=== PATIENT | female | born 1935 | race Caucasian/White ===

== ENCOUNTER 2017-11-21 07:24 | Inpatient (IN) | payer MEDICARE, OTHER ==
[2017-11-21] MEDS ORDERED: Acetaminophen TAB* 325 MG PO PRN (12:38)
[2017-11-21] MEDS ORDERED: Senna TAB PO PRN (12:38)
[2017-11-21] MEDS ORDERED: Magnesium Hydroxide LIQ* 30 ML UDC PO PRN (12:38)
[2017-11-21] MEDS: Warfarin TAB(*) 3 MG PO SCH (16:47)
[2017-11-21] MEDS: Docusate CAP* 100 MG PO SCH (19:59)
[2017-11-21] MEDS: Metoprolol Tartrate TAB* 100 MG TAB PO SCH (20:48)
--- NOTE | 2017-11-21 21:59 | HP ---
ADMISSION HISTORY AND PHYSICAL: DATE OF ADMISSION: 11/21/17 REASON FOR ADMISSION: Stroke with right-sided weakness and aphasia. HISTORY OF ILLNESS: Rose Saucedo is a 81-year-old female who has a history significant for hypertension as well as atrial fibrillation. The patient was on Xarelto for this. The patient came to [facility] acutely on 11/06/17. The patient went to bed at around 8 o'clock on November 05 but woke up at about 2 o'clock in the morning and had difficulty speaking. She was brought by her to [facility] about 4 o'clock. Her EKG showed sinus bradycardia. She had a CT angiogram showing a left middle cerebral artery cut off. She was transferred to [facility] for a potential for embolectomy. CAT scan of her head did show a hypodensity in the M2 segment of the left middle cerebral artery consistent with an intravascular thrombus. There was no evidence of any hemorrhagic transformation. The patient as mentioned was transferred and underwent an embolectomy for the proximal M2 thrombus. The patient was put on Coumadin. Her stroke was felt to be embolic because of her history of AFib. There was slow improvement in her neurologic functioning, but the patient was left with a significant aphasia as well as right arm weakness and some right leg weakness. The patient was felt to have physical therapy, occupational therapy and speech therapy needs. She is now being admitted for inpatient rehab, so that she might return to independent living. PAST MEDICAL HISTORY: Significant for the aforementioned hypertension and atrial fibrillation. CURRENT MEDICATIONS: Include: 1. Coumadin. 2. Lipitor. 3. Lisinopril. 4. Magnesium oxide. 5. Lopressor. 6. Potassium. ALLERGIES: To PENICILLIN and SULFA. SOCIAL HISTORY: She lives with her significant other in a [address] house. She has no children. There is a bedroom upstairs. There is a half-bath downstairs. She is a nonsmoker, nondrinker. REVIEW OF SYSTEMS: The patient reports no current shortness of breath or chest pain. PHYSICAL EXAMINATION VITAL SIGNS: The patient's temperature is 98.2, blood pressure is 113/57, pulse is 49, respirations 24. HEENT: Her extraocular movements are intact. I did not detect a facial palsy. LUNGS: Sounded clear to auscultation bilaterally. HEART: Sounds are regular. S1 and S2 are audible. ABDOMEN: Soft and nontender. EXTREMITIES: She had somewhat decreased muscle tone in her right upper extremity. Peripheral pulses were intact. NEUROLOGIC: The patient was awake and alert. She had an expressive and receptive aphasia. Right arm was about 3+/5 in strength. Her right leg was about 3+ to 4/5. FUNCTIONAL EXAM: The patient transfers with minimal amount of assistance. 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 PLAN: Our plan is to integrate her into a comprehensive and therapeutic rehab program with the following goals: 1. Physical Therapy will see the patient, they are going to work on functional transfer training and ambulation training with a walker. 2. Occupational Therapy will see the patient, work on her activities of daily living including toileting and toilet transfers. 3. Speech Therapy will see the patient, work on her aphasia and compensatory strategies. Work on her swallowing dysfunction. 4. Coumadin for atrial fibrillation as well as DVT prophylaxis. 5. For her atrial fibrillation, we will continue her on the Coumadin as well as beta-sofiya. 5. For secondary stroke prevention, we are going to continue the Coumadin as well as Lipitor. 6. SSRIs including Prozac as indicated. 7. Pillowcase Folder will be closely involved to make sure that any services and equipment that the patient requires are in place prior to discharge. 8. Family training as appropriate. 9. Advanced directives: The patient is a full code. Her significant other, Cem, is her proxy. 10. Home with appropriate services. ESTIMATED LENGTH OF STAY: Fourteen to eighteen days. [id number]/[facility] #: [id number] BIGG
[2017-11-22 06:39] LABS: INR 2.27 (0.77-1.02)
[2017-11-22] MEDS: Magnesium Oxide TAB* 400 MG PO SCH (10:06)
[2017-11-22] MEDS: Lisinopril TAB* 10 MG PO SCH (10:06)
[2017-11-22] MEDS: Metoprolol Tartrate TAB* 100 MG TAB PO SCH ×2 (10:07→21:09)
[2017-11-22] MEDS: Potassium Chlor TAB* 20 MEQ TAB.ER PO SCH (10:07)
[2017-11-22] MEDS: Docusate CAP* 100 MG PO SCH ×2 (10:10→21:07)
[2017-11-22] MEDS: Warfarin TAB(*) 3 MG PO SCH (16:55)
[2017-11-22] MEDS: Atorvastatin* 80 MG TAB PO SCH (16:55)
--- NOTE | 2017-11-22 18:07 | PN ---
Progress Note Date of Service: 11/22/17 Note: TEJAS TAVARES was visited. Therapy notes read and reviewed. She has a pretty significant aphasia, with both receptive and expressive elements. Right hemiparesis, arm>leg Current Medications: Active Medications Generic Name Dose Route Start Last Admin Trade Name Freq PRN Reason Stop Dose Admin Acetaminophen 650 mg 11/21/17 12:38 Tylenol Tab* PO Q6H PRN FEVER/PAIN Atorvastatin Calcium 80 mg 11/22/17 17:00 11/22/17 16:55 Lipitor* PO 80 mg 1700 CHAD Administration Docusate Sodium 100 mg 11/21/17 21:00 11/22/17 10:10 Colace Cap* PO Not Given BID CHAD Lisinopril 20 mg 11/22/17 09:00 11/22/17 10:06 Prinivil Tab* PO 20 mg DAILY CHAD Administration Magnesium Hydroxide 30 ml 11/21/17 12:38 Milk Of Magnesia Liq* PO Q6H PRN CONSTIPATION Magnesium Oxide 400 mg 11/22/17 09:00 11/22/17 10:06 Magox 400 Tab* PO 400 mg DAILY CHAD Administration Metoprolol Tartrate 100 mg 11/21/17 21:00 11/22/17 10:07 Lopressor Tab* PO 100 mg BID CHAD Administration Potassium Chloride 20 meq 11/22/17 09:00 11/22/17 10:07 Klor Con Er Tab* PO 20 meq DAILY CHAD Administration Senna 2 tab 11/21/17 12:38 Senokot Tab* PO BEDTIME PRN CONSTIPATION Warfarin Sodium 3 mg 11/21/17 17:00 11/22/17 16:55 Coumadin Tab(*) PO 3 mg DAILY@1700 CHAD Administration Protocol Vital Signs: Vital Signs Temp Pulse Resp BP Pulse Ox 97.6 F 46 18 128/64 99 11/22/17 16:07 11/22/17 16:07 11/22/17 16:07 11/22/17 16:07 11/22/17 16:07 Lab Results: Laboratory Results - last 24 hr 11/22/17 05:46 INR (Anticoag Therapy) 2.27 H Exam: LUNGS: Clear HEART: reg rhythm ABDOMEN: Soft, +BS EXTREMITIES: Slightly increased tone, RUE NEUROLOGIC: alert, aphasic. Right handgrip 2+-3/5. Right leg 4/5 Assessment/Plan: 1. Left MCA CVA with right hemiparesis and aphasia: Underwent embolectomy at [facility]. PT/OT/LAB ASST. May try Prozac 2. Atrial fibrillation: Coumadin. Lopressor 3. Secondary Stroke Prevention: Lipitor/Coumadin 4. DVT Prophylaxis: Coumadin 5. HTN: Lopressor/Lisinopril. 11/22/17 18:11
[2017-11-23 06:30] LABS: ABS Basophils 0 10^3/ul (0-0.2); ABS Eosinophils 0.1 10^3/ul (0-0.6); ABS Lymphocytes 1.1 10^3/ul (1.0-4.8); ABS Monocytes 0.6 10^3/ul (0-0.8); ABS Neutrophils 4.7 10^3/ul (1.5-7.7); ABS Nucleated RBC 0 10^3/ul; Eosinophil % 1.9 % (0-6); Hematocrit 37 % (35-47); Hemoglobin 12.7 g/dl (12.0-16.0); Mean Corpuscular HGB Conc 34 g/dl (31-36); Mean Corpuscular Hemoglobin 33 pg (27-31); Mean Corpuscular Volume 95 fL (80-97); Mean Platelet Volume 8.3 um3 (7.4-10.4); Nucleated Red Blood Cells % 0; Platelet Count 246 10^3/ul (150-450); Red Blood Count 3.88 10^6/ul (4.0-5.4); Red Cell Distribution Width 15 % (10.5-15); White Blood Count 6.7 10^3/ul (3.5-10.8)
[2017-11-23 06:37] LABS: INR 2.11 (0.77-1.02)
[2017-11-23 06:46] LABS: EGFR Non-African American 76.9 (>60)
[2017-11-23] MEDS: Magnesium Oxide TAB* 400 MG PO SCH (09:40)
[2017-11-23] MEDS: Lisinopril TAB* 10 MG PO SCH (09:40)
[2017-11-23] MEDS: Docusate CAP* 100 MG PO SCH ×2 (09:40→20:10)
[2017-11-23] MEDS: Potassium Chlor TAB* 20 MEQ TAB.ER PO SCH (09:40)
[2017-11-23] MEDS: Metoprolol Tartrate TAB* 100 MG TAB PO SCH ×2 (09:40→20:10)
--- NOTE | 2017-11-23 12:10 | PN ---
Progress Note Date of Service: 11/23/17 Note: TEJAS TAVARES was visited. Nursing and therapy notes read and reviewed. No chest pain, shortness of breath or abdominal pain. Current Medications: Active Medications Generic Name Dose Route Start Last Admin Trade Name Freq PRN Reason Stop Dose Admin Acetaminophen 650 mg 11/21/17 12:38 Tylenol Tab* PO Q6H PRN FEVER/PAIN Atorvastatin Calcium 80 mg 11/22/17 17:00 11/22/17 16:55 Lipitor* PO 80 mg 1700 CHAD Administration Docusate Sodium 100 mg 11/21/17 21:00 11/23/17 09:40 Colace Cap* PO 100 mg BID CHAD Administration Lisinopril 20 mg 11/22/17 09:00 11/23/17 09:40 Prinivil Tab* PO 20 mg DAILY CHAD Administration Magnesium Hydroxide 30 ml 11/21/17 12:38 Milk Of Magncruzito Liq* PO Q6H PRN CONSTIPATION Magnesium Oxide 400 mg 11/22/17 09:00 11/23/17 09:40 Magox 400 Tab* PO 400 mg DAILY CHAD Administration Metoprolol Tartrate 100 mg 11/21/17 21:00 11/23/17 09:40 Lopressor Tab* PO 100 mg BID CHAD Administration Potassium Chloride 20 meq 11/22/17 09:00 11/23/17 09:40 Klor Con Er Tab* PO 20 meq DAILY CHAD Administration Senna 2 tab 11/21/17 12:38 Senokot Tab* PO BEDTIME PRN CONSTIPATION Warfarin Sodium 3 mg 11/21/17 17:00 11/22/17 16:55 Coumadin Tab(*) PO 3 mg DAILY@1700 CHAD Administration Protocol Vital Signs: Vital Signs Temp Pulse Resp BP Pulse Ox 98.1 F 52 18 147/77 92 11/23/17 05:32 11/23/17 05:32 11/23/17 05:32 11/23/17 05:32 11/23/17 05:32 Lab Results: Laboratory Results - last 24 hr 11/23/17 11/23/17 11/23/17 05:48 05:48 05:48 WBC 6.7 RBC 3.88 L Hgb 12.7 Hct 37 MCV 95 MCH 33 H MCHC 34 RDW 15 Plt Count 246 MPV 8.3 Neut % (Auto) 71.2 Lymph % (Auto) 17.0 L [place] % (Auto) 9.4 H Eos % (Auto) 1.9 Baso % (Auto) 0.5 Absolute Neuts (auto) 4.7 Absolute Lymphs (auto) 1.1 Absolute Monos (auto) 0.6 Absolute Eos (auto) 0.1 Absolute Basos (auto) 0 Absolute Nucleated RBC 0 Nucleated RBC % 0 INR (Anticoag Therapy) 2.11 H Sodium 140 Potassium 3.5 Chloride 108 Carbon Dioxide 26 Anion Gap 6 BUN 29 H Creatinine 0.73 Est GFR ( Amer) 98.9 Est GFR (Non-Af Amer) 76.9 BUN/Creatinine Ratio 39.7 H Glucose 83 Calcium 9.2 Total Bilirubin 0.60 AST 20 ALT 12 Alkaline Phosphatase 105 H Total Protein 6.0 L Albumin 3.5 Globulin 2.5 Albumin/Globulin Ratio 1.4 Exam: GEN: No acute distress. Alert and appropriate. LUNGS: Clear to auscultation bilaterally HEART: regular rate and rhythm ABDOMEN: Soft, +BS, non-tender and non-distended. EXTREMITIES: Slightly increased tone, RUE NEUROLOGIC: aphasia. Right handgrip 3/5. Right leg 4+/5. Follows 1 step commands well. Some perseveration. Unclear sensory exam but does state the left and right sides feel "different" as opposed to "the same." Assessment/Plan: 81yo woman s/p left MCA CVA and embolectomy with right hemiparesis and aphasia. 1. Left MCA CVA with right hemiparesis and aphasia: Underwent embolectomy at [facility]. PT/OT/CADDY. Mechanical soft diet. Check with speech on documenation of swallow eval. May try Prozac 2. Atrial fibrillation: Coumadin. Lopressor 3. Secondary Stroke Prevention: Lipitor/Coumadin 4. DVT Prophylaxis: Coumadin 5. HTN: Lopressor/Lisinopril. 6. Advanced directives: full code 7. Dispo: discuss at IPOC meeting today. 11/23/17 12:12
--- NOTE | 2017-11-23 12:52 | PMRUTEAM ---
PMRU: Team Meeting Current Status: Nursing: Current Status Skin Deviations [Bilateral Other Foot] Skin Deviation Description [ dry feet Bilateral Foot] Physical Therapy: Current Status Bed Mobility Assistance mod assist Transfer Moblility Assistance Contact Guard Assist,Min Assist Transfer/Bed Mobility hand hold Recommended Devices Ambulation Assistance Contact guard to min A Ambulation Assistive Devices hand hold 60ft Stairs Assistance Not Tested Curb Not Tested Occupational Therapy: Current Status Upper Body Dressing Max Assist Lower Body Dressing Max Assist Bathing Max Asst Toileting Total Assist Toilet Transfer Min Assist Eating Supervision Rec Therapy: Current Status Summary of Assessment and Patient was open to meeting to discuss her leisure Clinical Impression lifestyle prior to admission. Patient responded mostly to closed questions with "yes" and seemed to have difficulty finding the words to express her thoughts. Patient would apologize and then stated that she was feeling "very tired." Manager Product Management kept our conversation brief to allow patient to adjust to the unit and to rest. Patient agreed she is open to continued leisure visits. Will continue to follow up. Treatment Goals Patient will engage in recreation and leisure activities while on the unit. Treatment Plan Provide and encourage involvement in RT services. Will follow up regularly for 1:1 leisure visits. Social Work: Current Status Discharge Plan return home with home care svs and family support Potential for Family Training pt's spouse is involved and supportive Anticipated Discharge Home Destination Discharge With Home care svs and family support Speech: Current Status Severe receptive and expressive aphasia. Apraxia. Assessment Patient is progressing slowly as expected, with improvement in use of gaze, gesture, repetition and spontaneous speech to indicate choices Speech Current Status Goal 1 2 Speech Goal 2 Current Status 3 Speech Goal 3 Current Status 2 Goals: Physical Therapy: Initial Goals Bed Mobility Assistance Independent Transfer Mobility Assistance Independent Transfer/Bed Mobility Rolling Walker Recommended Devices Ambulation Independent Ambulation Recommended Devices Rolling Walker Ambulation Distance 150 Stairs Assistance Independent Stair Recommended Devices Two Rails Number of Stairs 15 Occupational Therapy: Initial Goals Goals to be Completed in (Days 4 weeks ) Upper Body Bathing Routine Supervision/Set Up Lower Body Bathing Routine Supervision/Set Up Upper Body Dressing Routine Supervision/Set Up Lower Body Dressing Routine Supervision/Set Up Toilet Hygeine and Clothing Supervision/Set Up Management Routine Toilet Transfer Routine Supervision/Set Up Step-In Shower Transfer Supervision/Set Up Routine Tub Transfer Routine Supervision/Set Up Functional Transfers for ADL Modified Independent with Grooming Routine Independent Feeding Routine Independent Light Housekeeping Tasks Minimal Contact Assist,Moderate Assist Speech: Goals Speech Goal 1 Comprehension Speech Evaluation Status Goal 2 1 Speech Current Status Goal 1 2 Goal 1 Comments Long-Term Goals: 1) Patient will follow 1-step verbal directions, with greater than 80% accuracy, I'ly. 2) Patient will identify spatial concepts, body parts, familiar objects and pictures, with greater than 80% accuracy, I'ly. 3) Patient will read numbers and functional words with greater than 80% accuracy, I'ly Short-Term Goals: 1) Patient will follow simple 1-step verbal directions, with 50% accuracy, given maximal verbal cueing, without visual cues. Status: Progressing slowly as expected. ACADEMIC ADVISOR presented pages with labels and pictures, and prompted patient to point to and name pictures. Patient required direct models and [id number] cueing to imitate moving her hand to named pictures. 2) Patient will identify spatial concepts, body parts, familiar objects and pictures, with 50% accuracy, given maximum verbal cueing, without visual cues. Status: Progressing slowly as expected. Patient identified choices of two to complete her menu choices, by partial repetition, or answering "one" or "two." 3) Patient will read numerals and letters with 70% accuracy, given maximal cueing. Speech Goal 2 Expression Speech Goal 2 Evaluation 3 Status Speech Goal 2 Current Status 3 Speech Goal 2 Comments Long-Term Goals: 1) Patient will verbally answer functional questions and express medical and social narratives with greater than 80% accuracy, I'ly. 2) Patient will name spatial concepts, body parts, familiar objects and pictures, with 80% accuracy, I'ly. Status: Progressing slowly as expected. Patient expressed her menu choices, given verbal choices of two, by partial repetition, or answering "one" or "two." 3) Patient will write numbers and functional words with greater than 80% accuracy, I'ly Short-Term Goals: 1) Patient will name spatial concepts, body parts, familiar objects and pictures, with 50% accuracy, given maximal cueing. 2) Patient will use conversational repair strategies to find words by asking for help, hinting, and repeating target words in meaningful sentences, with 50% accuracy, given maximal cueing . Status: Progressing slowly as expected. Patient named 50% of pictureds given initial letter cues. 3) Patient will write numerals, letters and her name with 60% accuracy, given maximal cueing. Speech Goal 3 Problem Solving Speech Goal 3 Evaluation 2 Status Speech Goal 3 Current Status 2 Speech Goal 3 Comments Long-Term Goal: Patient will solve simple functional problems (sequencing, counting, safety) with 80% accuracy given minimal cueing. Short-Term Goal: Patient will solve simple functional problems with 50% accuracy given maximum cueing. Swallow screen to be completed. Already on mechanical soft diet. Social Work: Goals Discharge Plan return home with home care svs and family support Potential for Family Training pt's spouse is involved and supportive Anticipated Discharge Home Destination Discharge With Home care svs and family support Care Plan: Care Plan ADL's - Improve/Maintain Start: 11/22/17 16:31 Freq: DAILY Status: Active Target: Protocol: Activity Type Activity Date Activity User E-Sign Co-Sign Detail Recorded Client Recorded Date Recorded By Document 11/22/17 16:31 [id number] 11/22/17 16:32 [id number] 11/22/17 16:31 PMRU Outcome: ADL's/ADL Transfers Orders/Interventions Occupational Therapy Evaluation & Treatment Communication Tool in Patient Room Device Yes Address Deficits Secondary To: CVA s/p embolectomy Patient to receive OT 5x/wk for 60-120 Therex min/day Self Care Management Group Therapy Neuromuscular ReEducation UE/LE ADL's with Assist Yes: supervision ADL Transfers with Assist Yes: supervision Toileting: Transfers,Clothing Management Yes: ,Hygeine w/Assist supervision Light Kitchen/Laundry w/Assist Yes: min-modA Progression Toward Outcome/Goals Progressing Outcome/Goals Met Pt participated well in OT evaluation, difficult to fully assess 2* multiple areas of deficit including motor planning, weakness, visual field cut vs. neglect vs. inattention to right hemibody, difficulty following commands 2* aphasia and possible cognitive deficits. Pt will benefit from skilled OT intervention to maximize independence and safety. Communication-Improve/Maintain Start: 11/21/17 15:20 Freq: DAILY Status: Active Target: Protocol: Activity Type Activity Date Activity User E-Sign Co-Sign Detail Recorded Client Recorded Date Recorded By Document 11/23/17 01:20 [id number] 11/23/17 01:24 [id number] 11/23/17 01:20 PMRU Outcome: Communication/Cognitive Status Outcome/Goals Use Comm Tools/ Devices Makes Needs Known Effectively Other Outcomes/Goals COMPREHENSION Long-Term Goals : 1) Patient will follow 1-step verbal directions, with greater than 80% accuracy, I'ly. 2) Patient will identify spatial concepts, body parts, familiar objects and pictures, with greater than 80 % accuracy, I' ly. 3) Patient will read numbers and functional words with greater than 80 % accuracy, I' ly Short-Term Goals: 1) Patient will follow simple 1-step verbal directions, with 50% accuracy, given maximal verbal cueing, without visual cues. 2) Patient will identify spatial concepts, body parts, familiar objects and pictures, with 50% accuracy, given maximum verbal cueing, without visual cues. 3) Patient will read numerals and letters with 70% accuracy, given maximal cueing . EXPRESSION Long-Term Goals : 1) Patient will verbally answer functional questions and express medical and social narratives with greater than 80% accuracy, I 'ly. 2) Patient will name spatial concepts, body parts, familiar objects and pictures, with 80% accuracy, I 'ly. 3) Patient will write numbers and functional words with greater than 80 % accuracy, I' ly Short-Term Goals: 1) Patient will name spatial concepts, body parts, familiar objects and pictures, with 50% accuracy, given maximal cueing. 2) Patient will use conversational repair strategies to find words by asking for help , hinting, and repeating target words in meaningful sentences, with 50% accuracy, given maximal cueing. 3) Patient will write numerals , letters and her name with 60% accuracy, given maximal cueing. PROBLEM SOLVING Long-Term Goal: Patient will solve simple functional problems ( sequencing, counting, safety) with 80 % accuracy given minimal cueing. Short-Term Goal : Patient will solve simple functional problems with 50% accuracy given maximum cueing. Progression Toward Outcomes/Goals Goals Adjusted Coping/Psych-Improve/Maintain Start: 11/21/17 15:20 Freq: DAILY Status: Active Target: Protocol: Activity Type Activity Date Activity User E-Sign Co-Sign Detail Recorded Client Recorded Date Recorded By Document 11/23/17 10:08 [id number] 11/23/17 10:10 [id number] 11/23/17 10:08 PMRU Outcome: Coping/Psychosocial Coping Outcome/Goals Verbalization of Acceptance of Rehab Admit Verbalization of Sense of Control Over Health Status Psychosocial Outcome/Goals Maintain/ Improve Emotional Health Cooperate/ Participate in Plan Progression Toward Outcome/Goals - Progressing Coping Progression Toward Outcome/Goals - Progressing Psychosocial DVT Prophylaxis- Improve/Maintain Start: 11/21/17 15:20 Freq: DAILY Status: Active Target: Protocol: Activity Type Activity Date Activity User E-Sign Co-Sign Detail Recorded Client Recorded Date Recorded By Document 11/23/17 10:08 [id number] 11/23/17 10:10 [id number] 11/23/17 10:08 PMRU Outcome: DVT Prophylaxis Outcome/Goals Remains Free of DVT Complies with DVT Prophylaxis /Treatment TEDS Stockings on Every AM, Off at HS Progression Toward Outcome/Goals Progressing Discharge Planning - Improve/Maintain Start: 11/21/17 15:20 Freq: DAILY Status: Active Target: Protocol: Activity Type Activity Date Activity User E-Sign Co-Sign Detail Recorded Client Recorded Date Recorded By Document 11/23/17 01:20 [id number] 11/23/17 01:24 [id number] 11/23/17 01:20 PMRU Outcome: Discharge Planning Update Patient Family No Outcome/Goals Demonstrates Understanding of Discharge Plan Progression Toward Outcome/Goals Progressing Education-Improve/Maintain Start: 11/21/17 15:20 Freq: DAILY Status: Active Target: Protocol: Activity Type Activity Date Activity User E-Sign Co-Sign Detail Recorded Client Recorded Date Recorded By Document 11/23/17 10:08 [id number] 11/23/17 10:10 [id number] 11/23/17 10:08 PMRU Outcome: Education Outcome/Goals Demonstrate/ Verbalize Understanding of Written Discharge Instructions Demonstrates Skills Progression Toward Outcome/Goals Progressing /GI-Improve/Maintain Start: 11/21/17 15:20 Freq: DAILY Status: Active Target: Protocol: Activity Type Activity Date Activity User E-Sign Co-Sign Detail Recorded Client Recorded Date Recorded By Document 11/23/17 10:08 [id number] 11/23/17 10:10 [id number] 11/23/17 10:08 PMRU Outcome: Genitourinary/ Gastrointestinal Genitourinary- Outcome/Goals Maintain/ Achieve Urinary Continence Gastrointestinal-Outcome/Goals Maintain/ Achieve Bowel Regularity in Accordance with Pt's Baseline Prevent Constipation Laxatives as Ordered Other Outcome/Goals colace given this am Progression Toward Outcome/Goals - Progressing Progression Toward Outcome/Goals - GI Progressing Medication Administration Start: 11/21/17 15:20 Freq: DAILY Status: Active Target: Protocol: Activity Type Activity Date Activity User E-Sign Co-Sign Detail Recorded Client Recorded Date Recorded By Document 11/23/17 10:08 [id number] 11/23/17 10:10 [id number] 11/23/17 10:08 PMRU Outcome: Medication Administration Assess Patient Knowledge/Teach Med No Education for all Meds Outcome/Goals Patient Independent with Medication Administration at Home Progression Towards Outcome/Goals Progressing Outcome/Goals Met Comment needs reinforcement of medications Is Patient Going Home on Lovenox? No Neurological- Improve/Maintain Start: 11/21/17 15:20 Freq: DAILY Status: Active Target: Protocol: Activity Type Activity Date Activity User E-Sign Co-Sign Detail Recorded Client Recorded Date Recorded By Document 11/23/17 10:08 [id number] 11/23/17 10:10 [id number] 11/23/17 10:08 PMRU Outcome: Neurological Weakness/Aphasia Weakness Right Side Outcome/Goals Maintain/ Achieve Baseline Neurological Status Improve Neurological Status Maintain/ Improve Strength/ROM Progression Toward Outcome/Goals Progressing Safety- Improve/Maintain Start: 11/21/17 15:20 Freq: DAILY Status: Active Target: Protocol: Activity Type Activity Date Activity User E-Sign Co-Sign Detail Recorded Client Recorded Date Recorded By Document 11/23/17 10:08 [id number] 11/23/17 10:10 [id number] 11/23/17 10:08 PMRU Outcome: Safety Outcome/Goals Remain Free of Injury or Harm Cooperates with Safety Measures for Least Restrictive Environment Prevent Falls/ Injury Progression Toward Outcome/Goals Progressing Outcome/Goals Met Comment Tamper-free PA in place Medicine Note: Length of Stay: [4 weeks] Anticipated Discharge Destination: Home Tentative Discharge Date: [12/21/17] Discharged to: [home]
[2017-11-23] MEDS: Atorvastatin* 80 MG TAB PO SCH (17:24)
[2017-11-23] MEDS: Warfarin TAB(*) 3 MG PO SCH (17:24)
[2017-11-24] MEDS: Lisinopril TAB* 10 MG PO SCH (10:18)
[2017-11-24] MEDS: Polyethylene Glycol 3350* 17 GM PACKET PO PRN (10:19)
[2017-11-24] MEDS: Potassium Chlor TAB* 20 MEQ TAB.ER PO SCH (10:20)
[2017-11-24] MEDS: Docusate CAP* 100 MG PO SCH ×2 (10:20→20:57)
[2017-11-24] MEDS: Magnesium Oxide TAB* 400 MG PO SCH (10:20)
[2017-11-24] MEDS: Metoprolol Tartrate TAB* 100 MG TAB PO SCH ×2 (10:20→20:57)
--- NOTE | 2017-11-24 10:44 | PN ---
Progress Note Date of Service: 11/24/17 Note: TEJAS TAVARES was visited. Nursing and therapy notes read and reviewed. Cleared for regular consistencies with diet and thin liquids. Denies any chest pain, shortness of breath or abdominal pain. Only having stool smears for several days. Urinary incontinence. Current Medications: Active Medications Generic Name Dose Route Start Last Admin Trade Name Freq PRN Reason Stop Dose Admin Acetaminophen 650 mg 11/21/17 12:38 Tylenol Tab* PO Q6H PRN FEVER/PAIN Atorvastatin Calcium 80 mg 11/22/17 17:00 11/23/17 17:24 Lipitor* PO 80 mg 1700 CHAD Administration Docusate Sodium 100 mg 11/21/17 21:00 11/24/17 10:20 Colace Cap* PO 100 mg BID CHAD Administration Lisinopril 20 mg 11/22/17 09:00 11/24/17 10:18 Prinivil Tab* PO 20 mg DAILY CHAD Administration Magnesium Hydroxide 30 ml 11/21/17 12:38 Milk Of Magnesia Liq* PO Q6H PRN CONSTIPATION Magnesium Oxide 400 mg 11/22/17 09:00 11/24/17 10:20 Magox 400 Tab* PO 400 mg DAILY CHAD Administration Metoprolol Tartrate 100 mg 11/21/17 21:00 11/24/17 10:20 Lopressor Tab* PO 100 mg BID CHAD Administration Polyethylene Glycol/Electrolytes 17 gm 11/24/17 08:24 11/24/17 10:19 Miralax* PO 17 gm DAILY PRN Administration CONSTIPATION Potassium Chloride 20 meq 11/22/17 09:00 11/24/17 10:20 Klor Con Er Tab* PO 20 meq DAILY CHAD Administration Senna 2 tab 11/24/17 21:00 Senokot Tab* PO BEDTIME CHAD Warfarin Sodium 3 mg 11/21/17 17:00 11/23/17 17:24 Coumadin Tab(*) PO 3 mg DAILY@1700 CHAD Administration Protocol Vital Signs: Vital Signs Temp Pulse Resp BP Pulse Ox 98.2 F 76 18 154/58 100 11/24/17 05:43 11/24/17 05:55 11/24/17 05:55 11/24/17 05:55 11/24/17 05:55 Exam: GEN: No acute distress. Alert and appropriate. LUNGS: Clear to auscultation bilaterally HEART: regular rate and rhythm ABDOMEN: Soft, +BS, non-tender and non-distended. EXTREMITIES: No edema. NEUROLOGIC: aphasia, but seems to be able to answer questions better today. Right motor deltoid 3, wrist ext 2, it service manager 4, hip flexion 4. Follows 1 step commands well. Verbal and physical perseveration. Unclear sensory exam. 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 1. 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 Now on regular consistency diet and thin liquids. May try Prozac 2. Atrial fibrillation: Coumadin. Lopressor 3. Secondary Stroke Prevention: Lipitor/Coumadin 4. DVT Prophylaxis: Coumadin 5. HTN: Lopressor/Lisinopril. 6. Urinary incontinence: timed voids. 7. Constipation: add miralax prn 8. Advanced directives: full code 9. Dispo: tentative d/c set for 12/21/17 11/24/17 10:51
[2017-11-24] MEDS: Warfarin TAB(*) 3 MG PO SCH (16:57)
[2017-11-24] MEDS: Atorvastatin* 80 MG TAB PO SCH (16:57)
[2017-11-24] MEDS ORDERED: hydrALAZINE TAB* 10 MG PO PRN (17:06)
[2017-11-24] MEDS: Senna TAB PO SCH (20:56)
[2017-11-25] MEDS ORDERED: Bisacodyl SUPP* 10 MG SUPP PR PRN (09:07)
[2017-11-25] MEDS: Lisinopril TAB* 10 MG PO SCH (10:00)
[2017-11-25] MEDS: Potassium Chlor TAB* 20 MEQ TAB.ER PO SCH (10:00)
[2017-11-25] MEDS: Magnesium Oxide TAB* 400 MG PO SCH (10:00)
[2017-11-25] MEDS: Metoprolol Tartrate TAB* 100 MG TAB PO SCH ×2 (10:00→20:18)
[2017-11-25] MEDS: Docusate CAP* 100 MG PO SCH ×2 (10:00→20:18)
--- NOTE | 2017-11-25 10:07 | PN ---
Progress Note Date of Service: 11/25/17 Note: TEJAS TAVARES was visited. Nursing and therapy notes read and reviewed. She does not have any complaints. Slept in today since no therapies. Current Medications: Active Medications Generic Name Dose Route Start Last Admin Trade Name Freq PRN Reason Stop Dose Admin Acetaminophen 650 mg 11/21/17 12:38 Tylenol Tab* PO Q6H PRN FEVER/PAIN Atorvastatin Calcium 80 mg 11/22/17 17:00 11/24/17 16:57 Lipitor* PO 80 mg 1700 CHAD Administration Bisacodyl 10 mg 11/25/17 09:07 Dulcolax Supp* [place] DAILY PRN CONSTIPATION Docusate Sodium 100 mg 11/21/17 21:00 11/24/17 20:57 Colace Cap* PO 100 mg BID CHAD Administration Hydralazine HCl 5 mg 11/24/17 17:06 Apresoline Tab* PO Q6H PRN SBP > 180 Lisinopril 20 mg 11/22/17 09:00 11/24/17 10:18 Prinivil Tab* PO 20 mg DAILY CHAD Administration Magnesium Hydroxide 30 ml 11/21/17 12:38 Milk Of Magnesia Liq* PO Q6H PRN CONSTIPATION Magnesium Oxide 400 mg 11/22/17 09:00 11/24/17 10:20 Magox 400 Tab* PO 400 mg DAILY CHAD Administration Metoprolol Tartrate 100 mg 11/21/17 21:00 11/24/17 20:57 Lopressor Tab* PO 100 mg BID CHAD Administration Polyethylene Glycol/Electrolytes 17 gm 11/24/17 08:24 11/24/17 10:19 Miralax* PO 17 gm DAILY PRN Administration CONSTIPATION Potassium Chloride 20 meq 11/22/17 09:00 11/24/17 10:20 Klor Con Er Tab* PO 20 meq DAILY CHAD Administration Senna 2 tab 11/24/17 21:00 11/24/17 20:56 Senokot Tab* PO 2 tab BEDTIME CHAD Administration Warfarin Sodium 3 mg 11/21/17 17:00 11/24/17 16:57 Coumadin Tab(*) PO 3 mg DAILY@1700 CHAD Administration Protocol Vital Signs: Vital Signs 11/24/17 11/24/17 11/25/17 16:32 20:00 06:09 Temperature 98.0 F 98.3 F Pulse Rate 59 46 Respiratory 24 20 16 Rate Blood Pressure 173/86 171/84 (mmHg) O2 Sat by Pulse 97 96 Oximetry Vitals checked with her sitting up in bed pulse 41 and BP 149/74 Exam: GEN: No acute distress. Alert and appropriate. LUNGS: Clear to auscultation bilaterally HEART: regular rhythm with bradycardia ABDOMEN: Soft, +BS, non-tender and non-distended. EXTREMITIES: No edema. NEUROLOGIC: aphasia, but able to answer simple questions. Some verbal perseveration. Right motor deltoid 3, wrist ext 2, tongue and groove machine setter 4, hip flexion 4. Follows 1 step commands well. Physical perseveration. Unclear sensory exam. 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 1. 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 Now on regular consistency diet and thin liquids. May try Prozac 2. Proxysmal Atrial fibrillation with bradycardia: Had episodes of rapid afib at [facility]. I reviewed med sheets available which showed lopressor frequently held id days just prior to admission to [facility]. I will put parameters on lopressor. Possibly the dose should be decreased, but she has significant hypertension as well. Continue Coumadin and Lopressor with parameters. If it is often held consider decrease dose. Follow P3 and Mg. 3. Secondary Stroke Prevention: Lipitor/Coumadin 4. DVT Prophylaxis: Coumadin 5. HTN: Lopressor/Lisinopril. I added hydralazine prn SBP >180 and will have staff keep HOB elevated at night. 6. Urinary incontinence: timed voids. 7. Constipation: miralax prn. I added dulcolax suppository prn. 8. Advanced directives: full code 9. Dispo: tentative d/c set for 12/21/17 11/25/17 10:30
[2017-11-25 12:00] LABS: EGFR Non-African American 74.5 (>60)
[2017-11-25] MEDS: Warfarin TAB(*) 3 MG PO SCH (17:26)
[2017-11-25] MEDS: Atorvastatin* 80 MG TAB PO SCH (17:26)
[2017-11-25] MEDS: Senna TAB PO SCH (20:18)
[2017-11-26 07:02] LABS: INR 1.94 (0.77-1.02)
[2017-11-26] MEDS: Lisinopril TAB* 10 MG PO SCH (08:39)
[2017-11-26] MEDS: Docusate CAP* 100 MG PO SCH ×2 (08:39→22:04)
[2017-11-26] MEDS: Magnesium Oxide TAB* 400 MG PO SCH (08:40)
[2017-11-26] MEDS: Metoprolol Tartrate TAB* 100 MG TAB PO SCH (08:41)
[2017-11-26] MEDS: Potassium Chlor TAB* 20 MEQ TAB.ER PO SCH (08:41)
[2017-11-26] MEDS: Warfarin TAB(*) 4 MG PO SCH (16:50)
[2017-11-26] MEDS: Atorvastatin* 80 MG TAB PO SCH (16:50)
--- NOTE | 2017-11-26 19:53 | PN ---
Progress Note Date of Service: 11/26/17 Note: TEJAS TAVARES was visited. Therapy notes read and reviewed. Some incontinence issues. Seems to be upbeat with no complaints. Current Medications: Active Medications Generic Name Dose Route Start Last Admin Trade Name Freq PRN Reason Stop Dose Admin Acetaminophen 650 mg 11/21/17 12:38 Tylenol Tab* PO Q6H PRN FEVER/PAIN Atorvastatin Calcium 80 mg 11/22/17 17:00 11/26/17 16:50 Lipitor* PO 80 mg 1700 CHAD Administration Bisacodyl 10 mg 11/25/17 09:07 Dulcolax Supp* [place] DAILY PRN CONSTIPATION Docusate Sodium 100 mg 11/21/17 21:00 11/26/17 08:39 Colace Cap* PO 100 mg BID CHAD Administration Hydralazine HCl 5 mg 11/24/17 17:06 Apresoline Tab* PO Q6H PRN SBP > 180 Lisinopril 20 mg 11/22/17 09:00 11/26/17 08:39 Prinivil Tab* PO 20 mg DAILY CHAD Administration Magnesium Hydroxide 30 ml 11/21/17 12:38 Milk Of Magnesia Liq* PO Q6H PRN CONSTIPATION Magnesium Oxide 400 mg 11/22/17 09:00 11/26/17 08:40 Magox 400 Tab* PO 400 mg DAILY CHAD Administration Metoprolol Tartrate 75 mg 11/26/17 21:00 Lopressor Tab* PO Q12HR [facility] Pharmacy Profile Note 1 note 11/27/17 17:00 Coumadin Daily Reminder* FOLLOW UP 1700 [facility] Polyethylene Glycol/Electrolytes 17 gm 11/24/17 08:24 11/24/17 10:19 Miralax* PO 17 gm DAILY PRN Administration CONSTIPATION Potassium Chloride 20 meq 11/22/17 09:00 11/26/17 08:41 Klor Con Er Tab* PO 20 meq DAILY CHAD Administration Senna 2 tab 11/24/17 21:00 11/25/17 20:18 Senokot Tab* PO 2 tab BEDTIME CHAD Administration Warfarin Sodium 4 mg 11/26/17 10:35 11/26/17 16:50 Coumadin Tab(*) PO 4 mg DAILY@1700 CHAD Administration Protocol Vital Signs: Vital Signs Temp Pulse Resp BP Pulse Ox 98.6 F 50 18 143/66 96 11/26/17 15:57 11/26/17 16:01 11/26/17 15:57 11/26/17 15:57 11/26/17 15:57 Lab Results: Laboratory Results - last 24 hr 11/26/17 06:10 INR (Anticoag Therapy) 1.94 H Exam: LUNGS: Clear HEART: reg rhythm ABDOMEN: Soft, +BS EXTREMITIES: Slightly increased tone, RUE NEUROLOGIC: alert, aphasic. Right handgrip 3-4/5. Right leg 4/5 Assessment/Plan: 1. 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 Regular consistency diet/thin liquids. Will try Prozac 2. Proxysmal Atrial fibrillation. Continue Coumadin and Lopressor with parameters. 3. Secondary Stroke Prevention: Lipitor/Coumadin 4. DVT Prophylaxis: Coumadin 5. HTN: Lopressor/Lisinopril. hydralazine prn SBP >180 & staff will keep HOB elevated at night. 6. Urinary incontinence: timed voids. 7. Constipation: miralax prn. I added dulcolax suppository prn. 8. Advanced directives: full code 9. Bradycardia: reduce lopressor to 75 mg BID 11/26/17 19:53 11/26/17 19:55
[2017-11-26] MEDS: Senna TAB PO SCH (22:05)
[2017-11-26] MEDS: Metoprolol Tartrate TAB* 50 mg PO SCH (22:07)
[2017-11-27] MEDS: Lisinopril TAB* 10 MG PO SCH (09:00)
[2017-11-27] MEDS: FLUoxetine CAP* 10 MG PO SCH (09:00)
[2017-11-27] MEDS: Potassium Chlor TAB* 20 MEQ TAB.ER PO SCH (09:00)
[2017-11-27] MEDS: Magnesium Oxide TAB* 400 MG PO SCH (09:00)
[2017-11-27] MEDS: Docusate CAP* 100 MG PO SCH ×2 (09:00→19:45)
[2017-11-27] MEDS: Metoprolol Tartrate TAB* 50 mg PO SCH ×2 (09:00→19:44)
--- NOTE | 2017-11-27 12:50 | PMRUTEAM ---
PMRU: Team Meeting Current Status: Nursing: Current Status Skin Deviations [Bilateral Other Foot] Skin Deviation Description [no - skin issues noted] Skin Deviation Description [ dry skin Bilateral Foot] Physical Therapy: Current Status Bed Mobility Assistance Supervision Transfer Moblility Assistance Contact Guard Assist Transfer/Bed Mobility None Recommended Devices Transfer Mobility Comment pt. is able to perform a SPT without device cg x 1 . Ambulation Assistance Supervision,Contact Guard Assist Ambulation Assistive Devices Platform Walker Number of Feet Patient 150' Ambulated Ambulation Comment Pt. presents an improved reciprocal type gait pattern. Stairs Assistance Contact Guard Assist Stairs Recommended Devices Two Rails Number of Stairs 5 step over step. Curb Not Tested Occupational Therapy: Current Status Upper Body Dressing Mod Assist Upper Body Dressing Progress limited carryover for hemidressing Lower Body Dressing Mod Assist Lower Body Dressing Progress cues to use cross legged technique to avoid bending over Bathing Mod Assist Bathing Progress assist for thoroughness Toileting Max Asst Toilet Transfer Min Assist Shower Transfer Total Assist Shower Transfer Progress roll in shower chair Eating Supervision Eating Progress setupA Rec Therapy: Current Status Summary of Assessment and RT services introduced and RT assessment partially Clinical Impression complete d/t communication difficulties. Pt. has expressed interest in continued leisure visits. Treatment Goals Patient will engage in recreation and leisure activities while on the unit. Treatment Plan Provide and encourage involvement in RT services. Will follow up regularly for 1:1 leisure visits. Complete RT assessment entirely when appropriate to do so. Social Work: Current Status Discharge Plan return home with home care svs and family support Potential for Family Training pt's is involved and supportive Anticipated Discharge Home Destination Discharge With return home with home care svs and family support Nutrition: Current Status Monitoring pt cont to eat small meals very well; lactose- and gluten-free preferred. Regular textures and thin liquids via straw have been tolerated per GANG SUPERVISOR PIPE LINES. Labs notable for BG 132, although likely transient . BMs 11/25, 11/26. Appears to be meeting goals as outlined below. Speech: Current Status Assessment Patient is progressing as expected. Speech Current Status Goal 1 4 Speech Goal 2 Current Status 3 Speech Goal 3 Current Status 3 Speech Goal 4 Current Status 7 Goals: Physical Therapy: Initial Goals Bed Mobility Assistance Independent Transfer Mobility Assistance Independent Transfer/Bed Mobility Rolling Walker Recommended Devices Ambulation Independent Ambulation Recommended Devices Rolling Walker Ambulation Distance 150 Stairs Assistance Independent Stair Recommended Devices Two Rails Number of Stairs 5 Physical Therapy: Updated Goals Bed Mobility Assistance Independent Transfer Mobility Assistance Independent Transfer/Bed Mobility Rolling Walker Recommended Devices Ambulation Assistance Independent Ambulation Assistive Devices Rolling Walker Ambulation Distance (ft) 150 Stairs Assistance Independent Stairs Recommended Devices Two Rails Number of Stairs 5 Occupational Therapy: Initial Goals Goals to be Completed in (Days 4 weeks ) Upper Body Bathing Routine Supervision/Set Up Lower Body Bathing Routine Supervision/Set Up Upper Body Dressing Routine Supervision/Set Up Lower Body Dressing Routine Supervision/Set Up Toilet Hygeine and Clothing Supervision/Set Up Management Routine Toilet Transfer Routine Supervision/Set Up Step-In Shower Transfer Supervision/Set Up Routine Tub Transfer Routine Supervision/Set Up Functional Transfers for ADL Modified Independent with Grooming Routine Independent Feeding Routine Independent Light Housekeeping Tasks Minimal Contact Assist,Moderate Assist Nutrition: Goals Intervention Goals 1. adequate po intake to maintain stable wt, hydration, and lean body mass 2. pt will tolerate least-restrictive diet texture without difficulty chewing or swallowing 3. maintain bowel regularity w/o constipation or diarrhea Speech: Goals Speech Goal 1 Comprehension Speech Evaluation Status Goal 2 1 Speech Current Status Goal 1 4 Goal 1 Comments Long-Term Goals: 1) Patient will follow 1-step verbal directions, with greater than 80% accuracy, I'ly. 2) Patient will identify spatial concepts, body parts, familiar objects and pictures, with greater than 80% accuracy, I'ly. 3) Patient will read numbers and functional words with greater than 80% accuracy, I'ly Short-Term Goals: 1) Patient will follow simple 1-step verbal directions, with 50% accuracy, given maximal verbal cueing, without visual cues. Status: Progressing as expected Patient pointed to named photos given moderate cueing. 2) Patient will identify spatial concepts, body parts, familiar objects and pictures, with 50% accuracy, given maximum verbal cueing, without visual cues. Status: Progressing slowly as expected. Patient required maximum cueing, including direct visual models and [id number] prompts, to point or draw lines to pictures. Without cueing, patient read text on Left side and ignored pictures on Right. With moderate cueing, patient pointed straight across page to adjacent pictures, or pointed to one after another without choosing the correct picture. 3A) Patient will read numerals, letters, and common words with 80% accuracy, given moderate cueing. Patient read aloud short sentences describing pictures of common objects with 90% accuracy given minimal cueing, with errors of perseveration. Patient did not read labels in all-caps on the reverse of picture cards. Speech Goal 2 Expression Speech Goal 2 Evaluation 3 Status Speech Goal 2 Current Status 3 Speech Goal 2 Comments Long-Term Goals: 1) Patient will verbally answer functional questions and express medical and social narratives with greater than 80% accuracy, I'ly. 2) Patient will name spatial concepts, body parts, familiar objects and pictures, with 80% accuracy, I'ly. 3) Patient will write numbers and functional words with greater than 80% accuracy, I'ly Short-Term Goals: 1) Patient will name spatial concepts, body parts, familiar objects and pictures, with 50% accuracy, given maximal cueing. Status: Progressing as expected. Given maximal cueing of text labels, patient read to name with 90% accuracy. Given initial letter, initial sound, or phrase completion cues, patient named 3/16 pictures. 2) Patient will use conversational repair strategies to find words by asking for help, hinting, and repeating target words in meaningful sentences, with 50% accuracy, given maximal cueing . Status: Adapted to patient condition Patient made minimal partial attempts to find words aloud, but did not appeal to listener with gesture or requests, give maximum cueing 3) Patient will write numerals, letters and her name with 60% accuracy, given maximal cueing. Status: Adapted to patient condition. Given maximum cueing, patient held pen in nondominant left hand, lashon lines to connect a sequence of numbers, and marked Xs around a clockface instead of numerals. Patient placed pen in her impaired domonant Right hand but did not liquefier or move the pen. Speech Goal 3 Problem Solving Speech Goal 3 Evaluation 2 Status Speech Goal 3 Current Status 3 Speech Goal 3 Comments Long-Term Goal: Patient will solve simple functional problems (sequencing, counting, safety) with 80% accuracy given minimal cueing. Short-Term Goal: Patient will solve simple functional problems with 50% accuracy given maximum cueing. Status: Progressing as expected. Given 3-4 picture sequence cards and maxumim verbal and demnstrative cueing, patient sequenced 2/3 sequences. Given labels on Left and pictures on the Right, patient required maximum direct modeling to match items. Speech Goal 4 Swallowing Speech Goal 4 Evaluation 7 Status Speech Goal 4 Current Status 7 Speech Goal 4 Discharge Status 7 Speech Goal 4 Comments Goal: Patient will tolerate regular diet consistencies w/ adequate intake and no complications from aspiration, given setup as needed. Status: GANG SUPERVISOR PIPE LINES monitored the start of lunch. Patient tolerated a large slice and cut up pieces of regular turkey as finger food with adequate mastication, no oral residue, and no difficulty swallowing. Patient tolerated regular liquids by straw. Social Work: Goals Discharge Plan return home with home care svs and family support Potential for Family Training pt's is involved and supportive Anticipated Discharge Home Destination Discharge With return home with home care svs and family support Care Plan: Care Plan ADL's - Improve/Maintain Start: 11/22/17 16:31 Freq: DAILY@1200 Status: Active Target: Protocol: Activity Type Activity Date Activity User E-Sign Co-Sign Detail Recorded Client Recorded Date Recorded By Document 11/26/17 11:43 [id number] 11/26/17 11:43 [id number] 11/26/17 11:43 PMRU Outcome: ADL's/ADL Transfers Orders/Interventions Occupational Therapy Evaluation & Treatment Communication Tool in Patient Room Device Yes Address Deficits Secondary To: CVA s/p embolectomy Patient to receive OT 5x/wk for 60-120 Therex min/day Self Care Management Group Therapy Neuromuscular ReEducation UE/LE ADL's with Assist Yes: supervision ADL Transfers with Assist Yes: supervision Toileting: Transfers,Clothing Management Yes: ,Hygeine w/Assist supervision Light Kitchen/Laundry w/Assist Yes: min-modA Progression Toward Outcome/Goals Progressing Outcome/Goals Met Pt with increased RUE AROM at shoulder and elbow, continues with significant weakness distally as well as with inattention to RUE at times utilizing LUE over RUE in hand over hand even when able to complete certain movements with RUE without assistance requiring significant physical and verbal cues at times to isolate RUE during functional tasks. Communication-Improve/Maintain Start: 11/21/17 15:20 Freq: DAILY@1200 Status: Active Target: Protocol: Activity Type Activity Date Activity User E-Sign Co-Sign Detail Recorded Client Recorded Date Recorded By Document 11/27/17 03:30 [id number] 11/27/17 08:47 [id number] 11/27/17 03:30 PMRU Outcome: Communication/Cognitive Status Outcome/Goals Use Comm Tools/ Devices Makes Needs Known Effectively Progression Toward Outcomes/Goals Progressing Coping/Psych-Improve/Maintain Start: 11/21/17 15:20 Freq: DAILY@1200 Status: Active Target: Protocol: Activity Type Activity Date Activity User E-Sign Co-Sign Detail Recorded Client Recorded Date Recorded By Document 11/27/17 03:30 [id number] 11/27/17 08:47 [id number] 11/27/17 03:30 PMRU Outcome: Coping/Psychosocial Coping Outcome/Goals Verbalization of Acceptance of Rehab Admit Verbalization of Sense of Control Over Health Status Willingness to Participate in Treatment Plan and Basic Needs Psychosocial Outcome/Goals Maintain/ Improve Emotional Health Cooperate/ Participate in Plan Progression Toward Outcome/Goals - Progressing Coping Progression Toward Outcome/Goals - Progressing Psychosocial DVT Prophylaxis- Improve/Maintain Start: 11/21/17 15:20 Freq: DAILY@1200 Status: Active Target: Protocol: Activity Type Activity Date Activity User E-Sign Co-Sign Detail Recorded Client Recorded Date Recorded By Document 11/27/17 03:30 [id number] 11/27/17 08:47 [id number] 11/27/17 03:30 PMRU Outcome: DVT Prophylaxis Outcome/Goals Remains Free of DVT Complies with DVT Prophylaxis /Treatment TEDS Stockings on Every AM, Off at HS Progression Toward Outcome/Goals Progressing Discharge Planning - Improve/Maintain Start: 11/21/17 15:20 Freq: DAILY@1200 Status: Active Target: Protocol: Activity Type Activity Date Activity User E-Sign Co-Sign Detail Recorded Client Recorded Date Recorded By Document 11/27/17 03:30 [id number] 11/27/17 08:47 [id number] 11/27/17 03:30 PMRU Outcome: Discharge Planning Update Patient Family No Outcome/Goals Demonstrates Understanding of Discharge Plan Progression Toward Outcome/Goals Progressing Education-Improve/Maintain Start: 11/21/17 15:20 Freq: DAILY@1200 Status: Active Target: Protocol: Activity Type Activity Date Activity User E-Sign Co-Sign Detail Recorded Client Recorded Date Recorded By Document 11/27/17 03:30 [id number] 11/27/17 08:47 [id number] 11/27/17 03:30 PMRU Outcome: Education Outcome/Goals Encourage Questions Progression Toward Outcome/Goals Progressing /GI-Improve/Maintain Start: 11/21/17 15:20 Freq: DAILY@1200 Status: Active Target: Protocol: Activity Type Activity Date Activity User E-Sign Co-Sign Detail Recorded Client Recorded Date Recorded By Document 11/27/17 03:30 [id number] 11/27/17 08:47 [id number] 11/27/17 03:30 PMRU Outcome: Genitourinary/ Gastrointestinal Genitourinary- Outcome/Goals Maintain/ Achieve Urinary Continence Gastrointestinal-Outcome/Goals Maintain/ Achieve Bowel Regularity in Accordance with Pt's Baseline Prevent Constipation Laxatives as Ordered Progression Toward Outcome/Goals - Progressing Progression Toward Outcome/Goals - GI Progressing Outcome/Goals Met Comment pt incontinent Medication Administration Start: 11/21/17 15:20 Freq: DAILY@1200 Status: Active Target: Protocol: Activity Type Activity Date Activity User E-Sign Co-Sign Detail Recorded Client Recorded Date Recorded By Document 11/27/17 03:30 [id number] [id number] 11/27/17 08:47 [id number] 11/27/17 03:30 PMRU Outcome: Medication Administration Assess Patient Knowledge/Teach Med No Education for all Meds Outcome/Goals Patient Independent with Medication Administration at Home Progression Towards Outcome/Goals Progressing Is Patient Going Home on Lovenox? No Neurological- Improve/Maintain Start: 11/21/17 15:20 Freq: DAILY@1200 Status: Active Target: Protocol: Activity Type Activity Date Activity User E-Sign Co-Sign Detail Recorded Client Recorded Date Recorded By Document 11/27/17 03:30 [id number] 11/27/17 08:47 [id number] 11/27/17 03:30 PMRU Outcome: Neurological Weakness/Aphasia Weakness Aphasia Right Side Outcome/Goals Maintain/ Achieve Baseline Neurological Status Improve Neurological Status Maintain/ Improve Strength/ROM Progression Toward Outcome/Goals Progressing Safety- Improve/Maintain Start: 11/21/17 15:20 Freq: DAILY@1200 Status: Active Target: Protocol: Activity Type Activity Date Activity User E-Sign Co-Sign Detail Recorded Client Recorded Date Recorded By Document 11/27/17 03:30 [id number] [email or web address] 11/27/17 08:47 [id number] 11/27/17 03:30 PMRU Outcome: Safety Outcome/Goals Remain Free of Injury or Harm Prevent Falls/ Injury Outcome/Goals Met Comment [address] Medicine Note: Length of Stay: 3 1/2 weeks Anticipated Discharge Destination: Home Tentative Discharge Date: December 21, 2017 Discharged to: Home
--- NOTE | 2017-11-27 16:49 | PN ---
Progress Note Date of Service: 11/27/17 Note: TEJAS TAVARES was visited. Therapy notes read and reviewed. She was discussed in interdisciplinary team rounds. She started Prozac today and tolerated it. Making gains in PT Current Medications: Active Medications Generic Name Dose Route Start Last Admin Trade Name Freq PRN Reason Stop Dose Admin Acetaminophen 650 mg 11/21/17 12:38 Tylenol Tab* PO Q6H PRN FEVER/PAIN Atorvastatin Calcium 80 mg 11/22/17 17:00 11/26/17 16:50 Lipitor* PO 80 mg 1700 [facility]AD Administration Bisacodyl 10 mg 11/25/17 09:07 Dulcolax Supp* [place] DAILY PRN CONSTIPATION Docusate Sodium 100 mg 11/21/17 21:00 11/27/17 09:00 Colace Cap* PO 100 mg BID CHAD Administration Fluoxetine HCl 10 mg 11/27/17 09:00 11/27/17 09:00 Prozac Cap* PO 10 mg DAILY CHAD Administration Hydralazine HCl 5 mg 11/24/17 17:06 Apresoline Tab* PO Q6H PRN SBP > 180 Lisinopril 20 mg 11/22/17 09:00 11/27/17 09:00 Prinivil Tab* PO 20 mg DAILY CHAD Administration Magnesium Hydroxide 30 ml 11/21/17 12:38 Milk Of Magnesia Liq* PO Q6H PRN CONSTIPATION Magnesium Oxide 400 mg 11/22/17 09:00 11/27/17 09:00 Magox 400 Tab* PO 400 mg DAILY CHAD Administration Metoprolol Tartrate 75 mg 11/26/17 21:00 11/27/17 09:00 Lopressor Tab* PO 75 mg Q12HR CHAD Administration Pharmacy Profile Note 1 note 11/27/17 17:00 Coumadin Daily Reminder* FOLLOW UP 1700 [facility]AD Polyethylene Glycol/Electrolytes 17 gm 11/24/17 08:24 11/24/17 10:19 Miralax* PO 17 gm DAILY PRN Administration CONSTIPATION Potassium Chloride 20 meq 11/22/17 09:00 11/27/17 09:00 Klor Con Er Tab* PO 20 meq DAILY CHAD Administration Senna 2 tab 11/24/17 21:00 11/26/17 22:05 Senokot Tab* PO 2 tab BEDTIME CHAD Administration Warfarin Sodium 4 mg 11/26/17 10:35 11/26/17 16:50 Coumadin Tab(*) PO 4 mg DAILY@1700 [facility] Administration Protocol Vital Signs: Vital Signs Temp Pulse Resp BP Pulse Ox 97.6 F 54 18 152/82 96 11/27/17 15:46 11/27/17 15:46 11/27/17 15:46 11/27/17 15:46 11/27/17 15:46 Exam: LUNGS: Clear HEART: reg rhythm ABDOMEN: Soft, +BS EXTREMITIES: Slightly increased tone, RUE NEUROLOGIC: alert, aphasic. Right handgrip 3-4/5. Right leg 4/5 Assessment/Plan: 1. 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 Regular consistency diet/thin liquids. Will try Prozac 2. Proxysmal Atrial fibrillation. Continue Coumadin and Lopressor with parameters. 3. Secondary Stroke Prevention: Lipitor/Coumadin 4. DVT Prophylaxis: Coumadin 5. HTN: Lopressor/Lisinopril. hydralazine prn SBP >180 & staff will keep HOB elevated at night. 6. Urinary incontinence: timed voids. 7. Constipation: miralax prn. I added dulcolax suppository prn. 8. Advanced directives: full code 9. Bradycardia: reduce lopressor to 50 mg BID 11/27/17 16:49 11/27/17 16:51
[2017-11-27] MEDS: Atorvastatin* 80 MG TAB PO SCH (17:17)
[2017-11-27] MEDS: Warfarin TAB(*) 4 MG PO SCH (17:18)
[2017-11-27] MEDS: Senna TAB PO SCH (19:45)
--- NOTE | 2017-11-27 19:48 | RAD ---
Indication: Abdominal pain. Flat and decubitus views of the abdomen demonstrates no free air. There is stool throughout the colon. No dilated loops of bowel are noted. IMPRESSION: Stool throughout the colon. No free air is identified.
[2017-11-28 08:00] LABS: INR 1.85 (0.77-1.02)
[2017-11-28] MEDS: Docusate CAP* 100 MG PO SCH ×2 (08:17→21:23)
[2017-11-28] MEDS: Magnesium Oxide TAB* 400 MG PO SCH (08:19)
[2017-11-28] MEDS: FLUoxetine CAP* 10 MG PO SCH (08:19)
[2017-11-28] MEDS: Lisinopril TAB* 10 MG PO SCH (08:19)
[2017-11-28] MEDS: Polyethylene Glycol 3350* 17 GM PACKET PO PRN (08:20)
[2017-11-28] MEDS: Metoprolol Tartrate TAB* 50 mg PO SCH ×2 (08:20→21:24)
[2017-11-28] MEDS: Potassium Chlor TAB* 20 MEQ TAB.ER PO SCH (08:20)
[2017-11-28] MEDS ORDERED: Al Hydrox/Mg Hydrox/Simet LIQ* 30 ML UDC PO PRN (10:12)
[2017-11-28] MEDS ORDERED: Famotidine TAB* 20 MG PO ONE (10:13)
[2017-11-28] MEDS: Atorvastatin* 80 MG TAB PO SCH (17:51)
[2017-11-28] MEDS: Warfarin TAB(*) 5 MG PO SCH (17:51)
[2017-11-28] MEDS ORDERED: Sodium Phosphate ADULT ENEMA* 118 ml bottle PR PRN (18:07)
--- NOTE | 2017-11-28 18:14 | PN ---
Progress Note Date of Service: 11/28/17 Note: TEJAS TAVARES was visited. Therapy notes read and reviewed. She was having pain in her chest and abdomen that she was having trouble expressing due to her aphasia. I ordered an abdominal series x-ray that showed colon full of stool. Last night, she complained of possible chest pain. Troponin was 0.01. I think her trouble is that she is constipated. Have ordered Lactulose. May need a second dose. Current Medications: Active Medications Generic Name Dose Route Start Last Admin Trade Name Freq PRN Reason Stop Dose Admin Acetaminophen 650 mg 11/21/17 12:38 Tylenol Tab* PO Q6H PRN FEVER/PAIN Al Hydrox/Mg Hydrox/Simethicone 30 ml 11/28/17 10:12 Maalox Plus* PO Q6H PRN DYSPEPSIA Atorvastatin Calcium 80 mg 11/22/17 17:00 11/28/17 17:51 Lipitor* PO 80 mg 1700 [facility]AD Administration Bisacodyl 10 mg 11/25/17 09:07 Dulcolax Supp* [place] DAILY PRN CONSTIPATION Docusate Sodium 100 mg 11/21/17 21:00 11/28/17 08:17 Colace Cap* PO 100 mg BID CHAD Administration Fluoxetine HCl 10 mg 11/27/17 09:00 11/28/17 08:19 Prozac Cap* PO 10 mg DAILY CHAD Administration Hydralazine HCl 5 mg 11/24/17 17:06 Apresoline Tab* PO Q6H PRN SBP > 180 Lisinopril 20 mg 11/22/17 09:00 11/28/17 08:19 Prinivil Tab* PO 20 mg DAILY CHAD Administration Magnesium Hydroxide 30 ml 11/21/17 12:38 11/28/17 12:38 Milk Of Magnesia Liq* PO 30 ml Q6H PRN Administration CONSTIPATION Magnesium Oxide 400 mg 11/22/17 09:00 11/28/17 08:19 Magox 400 Tab* PO 400 mg DAILY CHAD Administration Metoprolol Tartrate 50 mg 11/27/17 16:52 11/28/17 08:20 Lopressor Tab* PO 50 mg Q12HR [facility]AD Administration Pharmacy Profile Note 1 note 11/27/17 17:00 11/28/17 17:50 Coumadin Daily Reminder* FOLLOW UP 1 note 1700 [facility] Administration Polyethylene Glycol/Electrolytes 17 gm 11/29/17 09:00 Miralax* PO DAILY CHAD Potassium Chloride 20 meq 11/22/17 09:00 11/28/17 08:20 Klor Con Er Tab* PO 20 meq DAILY CHAD Administration Senna 2 tab 11/24/17 21:00 11/27/17 19:45 Senokot Tab* PO 2 tab BEDTIME CHAD Administration Sodium Biphosphate/Sodium Phosphate 1 bottle 11/28/17 18:07 Fleet Enema* [place] DAILY PRN CONSTIPATION Warfarin Sodium 5 mg 11/28/17 18:00 11/28/17 17:51 Coumadin Tab(*) PO 5 mg DAILY@1700 [facility] Administration Protocol Vital Signs: Vital Signs Temp Pulse Resp BP Pulse Ox 98.7 F 50 16 127/65 96 11/28/17 16:20 11/28/17 16:20 11/28/17 16:20 11/28/17 16:20 11/28/17 16:20 Lab Results: Laboratory Results - last 24 hr 11/27/17 11/28/17 18:20 07:24 INR (Anticoag Therapy) 1.85 H Troponin I 0.01 Exam: LUNGS: Clear HEART: reg rhythm ABDOMEN: Distended, +BS EXTREMITIES: Slightly increased tone, RUE NEUROLOGIC: alert, aphasic. Right handgrip 3-4/5. Right leg 4/5 Assessment/Plan: 1. 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 Regular consistency diet/thin liquids. Will try Prozac 2. Proxysmal Atrial fibrillation. Continue Coumadin and Lopressor with parameters. 3. Secondary Stroke Prevention: Lipitor/Coumadin 4. DVT Prophylaxis: Coumadin 5. HTN: Lopressor/Lisinopril. hydralazine prn SBP >180 & staff will keep HOB elevated at night. 6. Urinary incontinence: timed voids. 7. Constipation: Lactulose. A second dose at 9 if no BM 8. Advanced directives: full code 9. Bradycardia: reduce lopressor to 50 mg BID 11/28/17 18:14
[2017-11-28] MEDS: Senna TAB PO SCH (21:24)
[2017-11-28] MEDS: Warfarin TAB(*) 4 MG PO SCH (21:32)
[2017-11-29] MEDS: Docusate CAP* 100 MG PO SCH ×2 (08:25→19:54)
[2017-11-29] MEDS: Lisinopril TAB* 10 MG PO SCH (08:26)
[2017-11-29] MEDS: Polyethylene Glycol 3350* 17 GM PACKET PO SCH (08:26)
[2017-11-29] MEDS: Magnesium Oxide TAB* 400 MG PO SCH (08:26)
[2017-11-29] MEDS: Metoprolol Tartrate TAB* 50 mg PO SCH ×2 (08:26→19:56)
[2017-11-29] MEDS: FLUoxetine CAP* 10 MG PO SCH (08:26)
[2017-11-29] MEDS: Potassium Chlor TAB* 20 MEQ TAB.ER PO SCH (08:28)
[2017-11-29] MEDS: Warfarin TAB(*) 5 MG PO SCH (17:40)
[2017-11-29] MEDS: Atorvastatin* 80 MG TAB PO SCH (17:41)
--- NOTE | 2017-11-29 19:53 | PN ---
Progress Note Date of Service: 11/29/17 Note: TEJAS TAVARES was visited. Therapy notes read and reviewed. She was able to have a large BM and had several yesterday. Quite tired from experience. She has problems with communication. Will increase Prozac Current Medications: Active Medications Generic Name Dose Route Start Last Admin Trade Name Freq PRN Reason Stop Dose Admin Acetaminophen 650 mg 11/21/17 12:38 Tylenol Tab* PO Q6H PRN FEVER/PAIN Al Hydrox/Mg Hydrox/Simethicone 30 ml 11/28/17 10:12 Maalox Plus* PO Q6H PRN DYSPEPSIA Atorvastatin Calcium 80 mg 11/22/17 17:00 11/29/17 17:41 Lipitor* PO 80 mg 1700 [facility]AD Administration Bisacodyl 10 mg 11/25/17 09:07 Dulcolax Supp* [place] DAILY PRN CONSTIPATION Docusate Sodium 100 mg 11/21/17 21:00 11/29/17 08:25 Colace Cap* PO 100 mg BID CHAD Administration Fluoxetine HCl 10 mg 11/27/17 09:00 11/29/17 08:26 Prozac Cap* PO 10 mg DAILY CHAD Administration Hydralazine HCl 5 mg 11/24/17 17:06 Apresoline Tab* PO Q6H PRN SBP > 180 Lisinopril 20 mg 11/22/17 09:00 11/29/17 08:26 Prinivil Tab* PO 20 mg DAILY CHAD Administration Magnesium Hydroxide 30 ml 11/21/17 12:38 11/28/17 12:38 Milk Of Magnesia Liq* PO 30 ml Q6H PRN Administration CONSTIPATION Magnesium Oxide 400 mg 11/22/17 09:00 11/29/17 08:26 Magox 400 Tab* PO 400 mg DAILY CHAD Administration Metoprolol Tartrate 50 mg 11/27/17 16:52 11/29/17 08:26 Lopressor Tab* PO 50 mg Q12HR CHAD Administration Pharmacy Profile Note 1 note 11/27/17 17:00 11/29/17 17:41 Coumadin Daily Reminder* FOLLOW UP 1 note 1700 [facility] Administration Polyethylene Glycol/Electrolytes 17 gm 11/29/17 09:00 11/29/17 08:26 Miralax* PO 17 gm DAILY CHAD Administration Potassium Chloride 20 meq 11/22/17 09:00 11/29/17 08:28 Klor Con Er Tab* PO 20 meq DAILY CHAD Administration Senna 2 tab 11/24/17 21:00 11/28/17 21:24 Senokot Tab* PO 2 tab BEDTIME CHAD Administration Sodium Biphosphate/Sodium Phosphate 1 bottle 11/28/17 18:07 11/28/17 21:30 Fleet Enema* [place] 1 bottle DAILY PRN Administration CONSTIPATION Warfarin Sodium 5 mg 11/28/17 18:00 11/29/17 17:40 Coumadin Tab(*) PO 5 mg DAILY@1700 [facility] Administration Protocol Vital Signs: Vital Signs Temp Pulse Resp BP Pulse Ox 97.5 F 88 22 82/60 97 11/29/17 15:17 11/29/17 16:03 11/29/17 15:17 11/29/17 15:41 11/29/17 19:43 Exam: LUNGS: Clear HEART: reg rhythm ABDOMEN: Distended, +BS EXTREMITIES: Slightly increased tone, RUE NEUROLOGIC: alert, aphasic. Right handgrip 3-4/5. Right leg 4/5 Assessment/Plan: 1. 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 Regular consistency diet/thin liquids. Will increase Prozac 2. Proxysmal Atrial fibrillation. Continue Coumadin and Lopressor with parameters. Check INR 3. Secondary Stroke Prevention: Lipitor/Coumadin 4. DVT Prophylaxis: Coumadin 5. HTN: Lopressor/Lisinopril. hydralazine prn SBP >180 & staff will keep HOB elevated at night. 6. Urinary incontinence: timed voids. 7. Constipation: Had BM 8. Advanced directives: full code 9. Bradycardia: reduce lopressor to 50 mg BID 11/29/17 19:53
[2017-11-29] MEDS: Senna TAB PO SCH (19:54)
[2017-11-30 06:51] LABS: ABS Basophils 0.2 10^3/ul (0-0.2); ABS Eosinophils 0.1 10^3/ul (0-0.6); ABS Lymphocytes 1.4 10^3/ul (1.0-4.8); ABS Monocytes 0.6 10^3/ul (0-0.8); ABS Neutrophils 4.5 10^3/ul (1.5-7.7); ABS Nucleated RBC 0 10^3/ul; Eosinophil % 2.2 % (0-6); Hematocrit 38 % (35-47); Lymphocyte % 21.1 % (25-47); Mean Corpuscular HGB Conc 35 g/dl (31-36); Mean Corpuscular Hemoglobin 33 pg (27-31); Mean Corpuscular Volume 96 fL (80-97); Mean Platelet Volume 8.9 um3 (7.4-10.4); Nucleated Red Blood Cells % 0; Platelet Count 195 10^3/ul (150-450); Red Blood Count 3.96 10^6/ul (4.0-5.4); Red Cell Distribution Width 15 % (10.5-15); White Blood Count 6.9 10^3/ul (3.5-10.8)
[2017-11-30 07:02] LABS: INR 3.66 (0.77-1.02)
[2017-11-30 07:11] LABS: EGFR Non-African American 79.4 (>60)
[2017-11-30] MEDS: Potassium Chlor TAB* 20 MEQ TAB.ER PO SCH (08:50)
[2017-11-30] MEDS: Polyethylene Glycol 3350* 17 GM PACKET PO SCH (08:51)
[2017-11-30] MEDS: Lisinopril TAB* 10 MG PO SCH (08:51)
[2017-11-30] MEDS: Magnesium Oxide TAB* 400 MG PO SCH (08:51)
[2017-11-30] MEDS: Docusate CAP* 100 MG PO SCH ×2 (08:51→21:52)
[2017-11-30] MEDS: Metoprolol Tartrate TAB* 50 mg PO SCH (08:51)
[2017-11-30] MEDS: FLUoxetine CAP* 10 MG PO SCH (08:52)
[2017-11-30] MEDS ORDERED: Warfarin TAB(*) 2.5 MG PO SCH (12:39)
--- NOTE | 2017-11-30 16:02 | PN ---
Progress Note Date of Service: 11/30/17 Note: TEJAS TAVARES was visited. Therapy notes read and reviewed. She remains aphasic. Did not have BM today, will try daily suppositories. INR elevated and her BPs have been low. Current Medications: Active Medications Generic Name Dose Route Start Last Admin Trade Name Freq PRN Reason Stop Dose Admin Acetaminophen 650 mg 11/21/17 12:38 Tylenol Tab* PO Q6H PRN FEVER/PAIN Al Hydrox/Mg Hydrox/Simethicone 30 ml 11/28/17 10:12 Maalox Plus* PO Q6H PRN DYSPEPSIA Atorvastatin Calcium 80 mg 11/22/17 17:00 11/29/17 17:41 Lipitor* PO 80 mg 1700 [facility] Administration Bisacodyl 10 mg 11/25/17 09:07 Dulcolax Supp* [place] DAILY PRN CONSTIPATION Docusate Sodium 100 mg 11/21/17 21:00 11/30/17 08:51 Colace Cap* PO 100 mg BID CHAD Administration Fluoxetine HCl 10 mg 11/27/17 09:00 11/30/17 08:52 Prozac Cap* PO 10 mg DAILY CHAD Administration Hydralazine HCl 5 mg 11/24/17 17:06 Apresoline Tab* PO Q6H PRN SBP > 180 Lisinopril 20 mg 11/22/17 09:00 11/30/17 08:51 Prinivil Tab* PO 20 mg DAILY CHAD Administration Magnesium Hydroxide 30 ml 11/21/17 12:38 11/28/17 12:38 Milk Of Magnesia Liq* PO 30 ml Q6H PRN Administration CONSTIPATION Magnesium Oxide 400 mg 11/22/17 09:00 11/30/17 08:51 Magox 400 Tab* PO 400 mg DAILY CHAD Administration Metoprolol Tartrate 50 mg 11/27/17 16:52 11/30/17 08:51 Lopressor Tab* PO 50 mg Q12HR CHAD Administration Pharmacy Profile Note 1 note 11/27/17 17:00 11/29/17 17:41 Coumadin Daily Reminder* FOLLOW UP 1 note 1700 [facility] Administration Polyethylene Glycol/Electrolytes 17 gm 11/29/17 09:00 11/30/17 08:51 Miralax* PO 17 gm DAILY CHAD Administration Potassium Chloride 20 meq 11/22/17 09:00 11/30/17 08:50 Klor Con Er Tab* PO 20 meq DAILY CHAD Administration Senna 2 tab 11/24/17 21:00 11/29/17 19:54 Senokot Tab* PO 2 tab BEDTIME CHAD Administration Sodium Biphosphate/Sodium Phosphate 1 bottle 11/28/17 18:07 11/28/17 21:30 Fleet Enema* [place] 1 bottle DAILY PRN Administration CONSTIPATION Warfarin Sodium 2.5 mg 11/30/17 12:39 Coumadin Tab(*) PO DAILY@1700 [facility] Protocol Vital Signs: Vital Signs Temp Pulse Resp BP Pulse Ox 97.0 F 60 16 86/60 96 11/30/17 06:07 11/30/17 15:42 11/30/17 15:42 11/30/17 15:42 11/30/17 06:07 Lab Results: Laboratory Results - last 24 hr 11/30/17 11/30/17 11/30/17 06:20 06:20 06:20 WBC 6.9 RBC 3.96 L Hgb 13.0 Hct 38 MCV 96 MCH 33 H MCHC 35 RDW 15 Plt Count 195 MPV 8.9 Neut % (Auto) 64.9 Lymph % (Auto) 21.1 L [place] % (Auto) 8.2 H Eos % (Auto) 2.2 Baso % (Auto) 3.6 H Absolute Neuts (auto) 4.5 Absolute Lymphs (auto) 1.4 Absolute Monos (auto) 0.6 Absolute Eos (auto) 0.1 Absolute Basos (auto) 0.2 Absolute Nucleated RBC 0 Nucleated RBC % 0 INR (Anticoag Therapy) 3.66 H Sodium 141 Potassium 3.6 Chloride 108 Carbon Dioxide 26 Anion Gap 7 BUN 22 Creatinine 0.71 Est GFR ( Amer) 102.1 Est GFR (Non-Af Amer) 79.4 BUN/Creatinine Ratio 31.0 H Glucose 88 Calcium 9.3 Total Bilirubin 0.50 AST 32 ALT 15 Alkaline Phosphatase 99 Total Protein 5.9 L Albumin 3.4 Globulin 2.5 Albumin/Globulin Ratio 1.4 Exam: LUNGS: Clear HEART: reg rhythm ABDOMEN: Distended, +BS EXTREMITIES: Slightly increased tone, RUE NEUROLOGIC: alert, aphasic. Right handgrip 3-4/5. Right leg 4/5 Assessment/Plan: 1. 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 PT/OT/AREA DEVELOPMENT CONSULTANT. Regular consistency diet/thin liquids. Will increase Prozac 2. Proxysmal Atrial fibrillation. Continue Coumadin and Lopressor with parameters. Check INR 3. Secondary Stroke Prevention: Lipitor/Coumadin 4. DVT Prophylaxis: Coumadin 5. HTN: Lopressor/Lisinopril. BPs now running low. Will cut back Lisinopril and lopressor 6. Urinary incontinence: timed voids. 7. Constipation: Had BM 8. Advanced directives: full code 9. Bradycardia: reduce lopressor to 25 mg BID 11/30/17 16:02
[2017-11-30] MEDS: Atorvastatin* 80 MG TAB PO SCH (17:28)
[2017-11-30] MEDS: Senna TAB PO SCH (21:51)
[2017-11-30] MEDS: Metoprolol Tartrate TAB* 25 MG PO SCH (21:53)
[2017-12-01 06:39] LABS: INR 3.84 (0.77-1.02)
[2017-12-01] MEDS: Metoprolol Tartrate TAB* 25 MG PO SCH (10:10)
[2017-12-01] MEDS: Lisinopril TAB* 10 MG PO SCH (10:10)
[2017-12-01] MEDS: Magnesium Oxide TAB* 400 MG PO SCH (10:10)
[2017-12-01] MEDS: Docusate CAP* 100 MG PO SCH ×2 (10:10→20:57)
[2017-12-01] MEDS: Potassium Chlor TAB* 20 MEQ TAB.ER PO SCH (10:11)
[2017-12-01] MEDS: Polyethylene Glycol 3350* 17 GM PACKET PO SCH (10:11)
[2017-12-01] MEDS: FLUoxetine CAP* 10 MG PO SCH (10:12)
--- NOTE | 2017-12-01 12:49 | PN ---
Progress Note Date of Service: 12/01/17 Note: TEJAS TAVARES was visited. Therapy notes read and reviewed. Abdominal pain less. She remains aphasic. BP low yesterday so I cut back her Lisinopril. Current Medications: Active Medications Generic Name Dose Route Start Last Admin Trade Name Freq PRN Reason Stop Dose Admin Acetaminophen 650 mg 11/21/17 12:38 Tylenol Tab* PO Q6H PRN FEVER/PAIN Al Hydrox/Mg Hydrox/Simethicone 30 ml 11/28/17 10:12 Maalox Plus* PO Q6H PRN DYSPEPSIA Atorvastatin Calcium 80 mg 11/22/17 17:00 11/30/17 17:28 Lipitor* PO 80 mg 1700 [facility] Administration Bisacodyl 10 mg 11/25/17 09:07 11/30/17 21:58 Dulcolax Supp* [place] 10 mg DAILY PRN Administration CONSTIPATION Docusate Sodium 100 mg 11/21/17 21:00 12/01/17 10:10 Colace Cap* PO 100 mg BID CHAD Administration Fluoxetine HCl 20 mg 12/02/17 08:00 Prozac Cap* PO DAILY CHAD Hydralazine HCl 5 mg 11/24/17 17:06 Apresoline Tab* PO Q6H PRN SBP > 180 Lisinopril 5 mg 12/01/17 08:00 12/01/17 10:10 Prinivil Tab* PO 5 mg Q24H CHAD Administration Magnesium Hydroxide 30 ml 11/21/17 12:38 11/28/17 12:38 Milk Of Magnesia Liq* PO 30 ml Q6H PRN Administration CONSTIPATION Magnesium Oxide 400 mg 11/22/17 09:00 12/01/17 10:10 Magox 400 Tab* PO 400 mg DAILY [facility]AD Administration Metoprolol Tartrate 50 mg 12/01/17 21:00 Lopressor Tab* PO Q12HR CHAD Pharmacy Profile Note 1 note 11/27/17 17:00 11/30/17 17:28 Coumadin Daily Reminder* FOLLOW UP 1 note 1700 [facility] Administration Polyethylene Glycol/Electrolytes 17 gm 11/29/17 09:00 12/01/17 10:11 Miralax* PO Not Given DAILY CHAD Potassium Chloride 20 meq 11/22/17 09:00 12/01/17 10:11 Klor Con Er Tab* PO 20 meq DAILY [facility]AD Administration Senna 2 tab 11/24/17 21:00 11/30/17 21:51 Senokot Tab* PO 2 tab BEDTIME CHAD Administration Sodium Biphosphate/Sodium Phosphate 1 bottle 11/28/17 18:07 11/28/17 21:30 Fleet Enema* [place] 1 bottle DAILY PRN Administration CONSTIPATION Warfarin Sodium 2 mg 12/01/17 17:00 Coumadin Tab(*) PO DAILY@1700 [facility] Protocol Vital Signs: Vital Signs Temp Pulse Resp BP Pulse Ox 98.7 F 78 18 148/60 96 12/01/17 05:22 12/01/17 05:22 12/01/17 08:00 12/01/17 05:22 12/01/17 08:00 Lab Results: Laboratory Results - last 24 hr 12/01/17 06:19 INR (Anticoag Therapy) 3.84 H Exam: LUNGS: Clear HEART: irreg rhythm ABDOMEN: Soft, Distended, +BS EXTREMITIES: Slightly increased tone, RUE NEUROLOGIC: alert, aphasic. Right handgrip 4/5. Right leg 4/5 Assessment/Plan: 1. 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 Regular consistency diet/thin liquids. Will increase Prozac 2. Proxysmal Atrial fibrillation. Continue Coumadin and Lopressor with parameters. Check INR 3. Secondary Stroke Prevention: Lipitor/Coumadin 4. DVT Prophylaxis: Coumadin 5. HTN: Lopressor/Lisinopril. BPs now running low. Lisinopril now 5 QD and lopressor 50 BID 6. Urinary incontinence: timed voids. 7. Constipation: Had BM 8. Advanced directives: full code 9. Bradycardia: lopressor 50 mg BID 12/01/17 12:50
[2017-12-01] MEDS: Atorvastatin* 80 MG TAB PO SCH (16:53)
[2017-12-01] MEDS ORDERED: Warfarin TAB(*) 2 MG PO SCH (17:00)
[2017-12-01] MEDS: Metoprolol Tartrate TAB* 50 mg PO SCH (20:57)
[2017-12-01] MEDS: Senna TAB PO SCH (20:57)
[2017-12-02 06:49] LABS: INR 3.76 (0.77-1.02)
[2017-12-02] MEDS: FLUoxetine CAP* 20 MG PO SCH ×2 (08:21→08:24)
[2017-12-02] MEDS: Docusate CAP* 100 MG PO SCH ×2 (08:21→19:55)
[2017-12-02] MEDS: Lisinopril TAB* 10 MG PO SCH (08:21)
[2017-12-02] MEDS: Magnesium Oxide TAB* 400 MG PO SCH (08:21)
[2017-12-02] MEDS: Polyethylene Glycol 3350* 17 GM PACKET PO SCH (08:22)
[2017-12-02] MEDS: Potassium Chlor TAB* 20 MEQ TAB.ER PO SCH (08:22)
[2017-12-02] MEDS: Metoprolol Tartrate TAB* 50 mg PO SCH ×2 (08:23→19:57)
--- NOTE | 2017-12-02 08:30 | PN ---
Progress Note Date of Service: 12/02/17 Note: TEJAS TAVARES was visited. Nursing notes read and reviewed. She is doing ok, she says. Her BP is higher now, HR still varies, lopressor often held. Current Medications: Active Medications Generic Name Dose Route Start Last Admin Trade Name Freq PRN Reason Stop Dose Admin Acetaminophen 650 mg 11/21/17 12:38 Tylenol Tab* PO Q6H PRN FEVER/PAIN Al Hydrox/Mg Hydrox/Simethicone 30 ml 11/28/17 10:12 Maalox Plus* PO Q6H PRN DYSPEPSIA Atorvastatin Calcium 80 mg 11/22/17 17:00 12/01/17 16:53 Lipitor* PO 80 mg 1700 [facility] Administration Bisacodyl 10 mg 11/25/17 09:07 11/30/17 21:58 Dulcolax Supp* [place] 10 mg DAILY PRN Administration CONSTIPATION Docusate Sodium 100 mg 11/21/17 21:00 12/02/17 08:21 Colace Cap* PO 100 mg BID CHAD Administration Fluoxetine HCl 20 mg 12/02/17 08:00 12/02/17 08:24 Prozac Cap* PO Not Given DAILY CHAD Hydralazine HCl 5 mg 11/24/17 17:06 Apresoline Tab* PO Q6H PRN SBP > 180 Lisinopril 5 mg 12/01/17 08:00 12/02/17 08:21 Prinivil Tab* PO 5 mg Q24H CHAD Administration Magnesium Hydroxide 30 ml 11/21/17 12:38 11/28/17 12:38 Milk Of Magnesia Liq* PO 30 ml Q6H PRN Administration CONSTIPATION Magnesium Oxide 400 mg 11/22/17 09:00 12/02/17 08:21 Magox 400 Tab* PO 400 mg DAILY CHAD Administration Metoprolol Tartrate 50 mg 12/01/17 21:00 12/02/17 08:23 Lopressor Tab* PO Not Given Q12HR [facility] Pharmacy Profile Note 1 note 11/27/17 17:00 12/01/17 16:55 Coumadin Daily Reminder* FOLLOW UP 1 note 1700 [facility] Administration Polyethylene Glycol/Electrolytes 17 gm 11/29/17 09:00 12/02/17 08:22 Miralax* PO 17 gm DAILY [facility]AD Administration Potassium Chloride 20 meq 11/22/17 09:00 12/02/17 08:22 Klor Con Er Tab* PO 20 meq DAILY CHAD Administration Senna 2 tab 11/24/17 21:00 12/01/17 20:57 Senokot Tab* PO Not Given BEDTIME CHAD Sodium Biphosphate/Sodium Phosphate 1 bottle 11/28/17 18:07 11/28/17 21:30 Fleet Enema* [place] 1 bottle DAILY PRN Administration CONSTIPATION Warfarin Sodium 3 mg 12/02/17 08:10 Coumadin Tab(*) PO DAILY@1700 [facility] Protocol Vital Signs: Vital Signs Temp Pulse Resp BP Pulse Ox 98.5 F 48 18 160/72 94 12/02/17 05:05 12/02/17 08:26 12/02/17 07:46 12/02/17 05:05 12/02/17 08:00 Lab Results: Laboratory Results - last 24 hr 12/02/17 06:15 INR (Anticoag Therapy) 3.76 H Exam: LUNGS: Clear HEART: irreg rhythm ABDOMEN: Soft, Distended, +BS EXTREMITIES: Slightly increased tone, RUE NEUROLOGIC: alert, aphasic. Right handgrip 4/5. Right leg 4/5 Assessment/Plan: 1. 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 Regular consistency diet/thin liquids. Prozac, 20 mg 2. Proxysmal Atrial fibrillation. Continue Coumadin and Lopressor with parameters. Check INR 3. Secondary Stroke Prevention: Lipitor/Coumadin 4. DVT Prophylaxis: Coumadin 5. HTN: Lopressor/Lisinopril. BPs now running higher. Lisinopril now 5 QD and lopressor 50 BID 6. Urinary incontinence: timed voids. 7. Constipation: Had BM 8. Advanced directives: full code 9. Bradycardia: lopressor 50 mg BID 12/02/17 08:30
[2017-12-02] MEDS: Atorvastatin* 80 MG TAB PO SCH (17:16)
[2017-12-02] MEDS: Warfarin TAB(*) 3 MG PO SCH (17:17)
[2017-12-02] MEDS: Senna TAB PO SCH (19:56)
[2017-12-03 06:33] LABS: INR 3.06 (0.77-1.02)
[2017-12-03] MEDS: Docusate CAP* 100 MG PO SCH ×2 (09:53→19:59)
[2017-12-03] MEDS: FLUoxetine CAP* 20 MG PO SCH (09:53)
[2017-12-03] MEDS: Potassium Chlor TAB* 20 MEQ TAB.ER PO SCH (09:53)
[2017-12-03] MEDS: Polyethylene Glycol 3350* 17 GM PACKET PO SCH (09:53)
[2017-12-03] MEDS: Metoprolol Tartrate TAB* 50 mg PO SCH ×2 (09:53→19:59)
[2017-12-03] MEDS: Lisinopril TAB* 10 MG PO SCH (09:53)
[2017-12-03] MEDS: Magnesium Oxide TAB* 400 MG PO SCH (09:53)
--- NOTE | 2017-12-03 16:56 | PN ---
Progress Note Date of Service: 12/03/17 Note: TEJAS TAVARES was visited. Therapy notes read and reviewed. Her INR is coming down. She feels okay but communication skills not great Current Medications: Active Medications Generic Name Dose Route Start Last Admin Trade Name Freq PRN Reason Stop Dose Admin Acetaminophen 650 mg 11/21/17 12:38 Tylenol Tab* PO Q6H PRN FEVER/PAIN Al Hydrox/Mg Hydrox/Simethicone 30 ml 11/28/17 10:12 Maalox Plus* PO Q6H PRN DYSPEPSIA Atorvastatin Calcium 80 mg 11/22/17 17:00 12/02/17 17:16 Lipitor* PO 80 mg 1700 [facility] Administration Bisacodyl 10 mg 11/25/17 09:07 11/30/17 21:58 Dulcolax Supp* [place] 10 mg DAILY PRN Administration CONSTIPATION Docusate Sodium 100 mg 11/21/17 21:00 12/03/17 09:53 Colace Cap* PO 100 mg BID CHAD Administration Fluoxetine HCl 20 mg 12/02/17 08:00 12/03/17 09:53 Prozac Cap* PO 20 mg DAILY [facility]AD Administration Hydralazine HCl 5 mg 11/24/17 17:06 Apresoline Tab* PO Q6H PRN SBP > 180 Lisinopril 5 mg 12/01/17 08:00 12/03/17 09:53 Prinivil Tab* PO 5 mg Q24H CHAD Administration Magnesium Hydroxide 30 ml 11/21/17 12:38 11/28/17 12:38 Milk Of Magnesia Liq* PO 30 ml Q6H PRN Administration CONSTIPATION Magnesium Oxide 400 mg 11/22/17 09:00 12/03/17 09:53 Magox 400 Tab* PO 400 mg DAILY [facility]AD Administration Metoprolol Tartrate 50 mg 12/01/17 21:00 12/03/17 09:53 Lopressor Tab* PO 50 mg Q12HR [facility]AD Administration Pharmacy Profile Note 1 note 11/27/17 17:00 12/02/17 17:17 Coumadin Daily Reminder* FOLLOW UP 1 note 1700 [facility] Administration Polyethylene Glycol/Electrolytes 17 gm 11/29/17 09:00 12/03/17 09:53 Miralax* PO 17 gm DAILY [facility]AD Administration Potassium Chloride 20 meq 11/22/17 09:00 12/03/17 09:53 Klor Con Er Tab* PO 20 meq DAILY [facility]AD Administration Senna 2 tab 11/24/17 21:00 12/02/17 19:56 Senokot Tab* PO 2 tab BEDTIME CHAD Administration Sodium Biphosphate/Sodium Phosphate 1 bottle 11/28/17 18:07 11/28/17 21:30 Fleet Enema* [place] 1 bottle DAILY PRN Administration CONSTIPATION Warfarin Sodium 3 mg 12/02/17 08:10 12/02/17 17:17 Coumadin Tab(*) PO 3 mg DAILY@1700 [facility] Administration Protocol Vital Signs: Vital Signs Temp Pulse Resp BP Pulse Ox 98.6 F 66 20 162/90 95 12/03/17 16:17 12/03/17 16:17 12/03/17 16:17 12/03/17 16:26 12/03/17 16:17 Lab Results: Laboratory Results - last 24 hr 12/03/17 06:05 INR (Anticoag Therapy) 3.06 H Exam: LUNGS: Clear HEART: irreg rhythm ABDOMEN: Soft, Distended, +BS EXTREMITIES: Slightly increased tone, RUE NEUROLOGIC: alert, aphasic. Right handgrip 4/5. Right leg 4/5 Assessment/Plan: 1. 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 Regular consistency diet/thin liquids. Prozac, 20 mg 2. Proxysmal Atrial fibrillation. Continue Coumadin and Lopressor with parameters. Check INR 3. Secondary Stroke Prevention: Lipitor/Coumadin 4. DVT Prophylaxis: Coumadin 5. HTN: Lopressor/Lisinopril. BPs now running higher. Lisinopril now 5 QD and lopressor 50 BID 6. Urinary incontinence: timed voids. 7. Constipation: Had BM 8. Advanced directives: full code 9. Bradycardia: lopressor down to 50 mg BID 12/03/17 16:57
[2017-12-03] MEDS: Warfarin TAB(*) 3 MG PO SCH (17:38)
[2017-12-03] MEDS: Atorvastatin* 80 MG TAB PO SCH (17:38)
[2017-12-03] MEDS: Senna TAB PO SCH (19:59)
[2017-12-04] MEDS: Metoprolol Tartrate TAB* 50 mg PO SCH ×2 (09:02→20:14)
[2017-12-04] MEDS: FLUoxetine CAP* 20 MG PO SCH (09:02)
[2017-12-04] MEDS: Docusate CAP* 100 MG PO SCH ×2 (09:02→20:14)
[2017-12-04] MEDS: Polyethylene Glycol 3350* 17 GM PACKET PO SCH (09:02)
[2017-12-04] MEDS: Magnesium Oxide TAB* 400 MG PO SCH (09:02)
[2017-12-04] MEDS: Lisinopril TAB* 10 MG PO SCH (09:02)
[2017-12-04] MEDS: Potassium Chlor TAB* 20 MEQ TAB.ER PO SCH (09:03)
--- NOTE | 2017-12-04 12:51 | PMRUTEAM ---
PMRU: Team Meeting Current Status: Nursing: Current Status Skin Deviations [no skin Other issues noted] Skin Deviations [Buttocks] Other Skin Deviations [Bilateral Other Foot] Skin Deviation Description [no - skin issues noted] Skin Deviation Description [ no redness noted Buttocks] Skin Deviation Description [ dry skin Bilateral Foot] Bladder Current Status incontinent at times, voiding at times Bowel Current Status Incontinent at times, last BM was 12/02/2017 Nutrition Current Status Adequete Medication Current Status Needs reinforcement Physical Therapy: Current Status Bed Mobility Assistance Supervision Transfer Moblility Assistance Supervision Transfer/Bed Mobility Rolling Walker Recommended Devices Transfer Mobility Comment Pt. now uses 2 w/w for transfers and amb. Ambulation Assistance Supervision Ambulation Assistive Devices Rolling Walker Number of Feet Patient 150' Ambulated Ambulation Comment Pt. presents an improved reciprocal type gait pattern. Stairs Assistance Supervision Stairs Recommended Devices Two Rails Number of Stairs 10 Curb Not Tested Occupational Therapy: Current Status Upper Body Dressing Min Assist Upper Body Dressing Progress assist to clasp bra, increased time and v/c's to orient shirt Lower Body Dressing Mod Assist Lower Body Dressing Progress v/c's for cross legged technique, assist to hike pants 2* RUE weakness Bathing Min Assist Bathing Progress balance in standing, assist with rear bladimir hygiene Toileting Max Asst Toileting Progress assist for clothing management, rear bladimir hygiene Toilet Transfer Contact Guard Assist,Min Assist Toilet Transfer Progress v/c's for safety and hand placement Shower Transfer Total Assist Shower Transfer Progress roll in shower chair, able to 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 Pt. spends much of the afternoon RT time resting but has expressed interest in continued leisure visits . Treatment Goals Patient will engage in recreation and leisure activities while on the unit. Treatment Plan Provide and encourage involvement in RT services. Will follow up regularly for 1:1 leisure visits. Complete RT assessment entirely when appropriate to do so. Social Work: Current Status Discharge Plan return home with home care svs and family support Potential for Family Training pt's partner is supportive and involved Anticipated Discharge Home Destination Discharge With home care svs and family support Nutrition: Current Status Monitoring Intake remains excellent: 90-100% of meals past few days. Required containers opened and food cut at most meals. Lactose- and gluten-free preferred. Meeting goal of tolerating regular texture per BATCH DUMPER note 12/03. No new labs to report since 11/30. Bms 12/01, 12/02 (soft/liquid). Coumadin/vit K and statin/grapefruit education deferred until friend or family member present (tentative d/c date is ). Will cont to follow. Currently appears to be meeting nutrition goals. Speech: Current Status Assessment Patient is progressing slowly, with modest improvement in receptive and expressive language, and modest improvement in initiation to solve basic problems. Speech Current Status Goal 1 4 Speech Goal 2 Current Status 3 Speech Goal 3 Current Status 3 Speech Goal 4 Current Status 7 Goals: Physical Therapy: Initial Goals Bed Mobility Assistance Independent Transfer Mobility Assistance Independent Transfer/Bed Mobility Rolling Walker Recommended Devices Ambulation Independent Ambulation Recommended Devices Rolling Walker Ambulation Distance 150 Stairs Assistance Independent Stair Recommended Devices Two Rails Number of Stairs 5 Physical Therapy: Updated Goals Bed Mobility Assistance Independent Transfer Mobility Assistance Independent Transfer/Bed Mobility Rolling Walker Recommended Devices Ambulation Assistance Independent Ambulation Assistive Devices Rolling Walker Ambulation Distance (ft) 150 Stairs Assistance Independent Stairs Recommended Devices Two Rails Number of Stairs 5 Occupational Therapy: Initial Goals Goals to be Completed in (Days 4 weeks ) Upper Body Bathing Routine Supervision/Set Up Lower Body Bathing Routine Supervision/Set Up Upper Body Dressing Routine Supervision/Set Up Lower Body Dressing Routine Supervision/Set Up Toilet Hygeine and Clothing Supervision/Set Up Management Routine Toilet Transfer Routine Supervision/Set Up Step-In Shower Transfer Supervision/Set Up Routine Tub Transfer Routine Supervision/Set Up Functional Transfers for ADL Modified Independent with Grooming Routine Independent Feeding Routine Independent Light Housekeeping Tasks Minimal Contact Assist,Moderate Assist Nursing: Goals Bladder Goal Voiding q2hr Bowel Goal No incontinence Nutrition Goal 100% of all meals Medication Goal will supervise medications Nutrition: Goals Intervention Goals 1. adequate po intake to maintain stable wt, hydration, and lean body mass 2. pt will tolerate least-restrictive diet texture without difficulty chewing or swallowing 3. maintain bowel regularity w/o constipation or diarrhea Speech: Goals Speech Goal 1 Comprehension Speech Evaluation Status Goal 2 1 Speech Current Status Goal 1 4 Goal 1 Comments Long-Term Goals: 1) Patient will follow 1-step verbal directions, with greater than 80% accuracy, I'ly. 2) Patient will identify spatial concepts, body parts, familiar objects and pictures, with greater than 80% accuracy, I'ly. 3) Patient will read numbers and functional words with greater than 80% accuracy, I'ly Short-Term Goals: 1B) Patient will follow simple 1-step verbal directions, with 70% accuracy, given moderate verbal cueing, without visual cues. Status: Progressing slowly as expected. Patient followed directions with 70% accuracy, given visual demonstratipon and several repetitions of verbal command. Patient did not initiate repsonses given silent waiting or verbal "I can wait.". 2B) Patient will identify spatial concepts, body parts, familiar objects and pictures, with 50% accuracy, given moderate verbal cueing, without visual cues. Status: Progressing slowly as expected. Given verbal description of actions, patient pointed to pictures of the objects of the action ( example: sit... chair), given moderate verbal cues , with 30% accuracy, and required maximum cueing with direct visual model for 50% of trials 3A) Patient will read numerals, letters, and common words with 80% accuracy, given moderate cueing. Status: Progressing slowly as expected. Patient read communication cards and photo labels with 60% accuracy when given large print labels under pictures. Speech Goal 2 Expression Speech Goal 2 Evaluation 3 Status Speech Goal 2 Current Status 3 Speech Goal 2 Comments Long-Term Goals: 1) Patient will verbally answer functional questions and express medical and social narratives with greater than 80% accuracy, I'ly. 2) Patient will name spatial concepts, body parts, familiar objects and pictures, with 80% accuracy, I'ly. 3) Patient will write numbers and functional words with greater than 80% accuracy, I'ly Short-Term Goals: 1A) Patient will name spatial concepts, body parts , familiar objects and pictures, with 70% accuracy , given moderate cueing. Status: Progressing slowly as expected. Patient required maximal cueing to name the labeled pictures on the communication cards she has has for one week. 2) Patient will use conversational repair strategies to find words by asking for help, hinting, and repeating target words in meaningful sentences, with 50% accuracy, given maximal cueing . Status: Progressing slowly as expected. Patient required maximal cueing to role-play using the cards to ask for needs. 3) Patient will write numerals, letters and her name with 60% accuracy, given maximal cueing. Status: Progressing slowly as expected. Speech Goal 3 Problem Solving Speech Goal 3 Evaluation 2 Status Speech Goal 3 Current Status 3 Speech Goal 3 Comments Long-Term Goal: Patient will solve simple functional problems (sequencing, counting, safety) with 80% accuracy given minimal cueing. Short-Term Goal: Patient will solve simple functional problems with 50% accuracy given maximum cueing. Status: Progressing slowly as expected. Patient required maximal cueing to role-play using the cards to ask for needs. Speech Goal 4 Swallowing Speech Goal 4 Evaluation 7 Status Speech Goal 4 Current Status 7 Speech Goal 4 Discharge Status 7 Speech Goal 4 Comments Goal: Patient will tolerate regular diet consistencies w/ adequate intake and no complications from aspiration, given setup as needed. Status: Met. Social Work: Goals Discharge Plan return home with home care svs and family support Potential for Family Training pt's partner is supportive and involved Anticipated Discharge Home Destination Discharge With home care svs and family support Care Plan: Care Plan ADL's - Improve/Maintain Start: 11/22/17 16:31 Freq: DAILY@1200 Status: Active Target: Protocol: Activity Type Activity Date Activity User E-Sign Co-Sign Detail Recorded Client Recorded Date Recorded By Document 12/04/17 09:25 [id number] [id number] 12/04/17 09:25 [id number] 12/04/17 09:25 PMRU Outcome: ADL's/ADL Transfers Orders/Interventions Occupational Therapy Evaluation & Treatment Communication Tool in Patient Room Device Yes Address Deficits Secondary To: CVA s/p embolectomy Patient to receive OT 5x/wk for 60-120 Therex min/day Self Care Management Group Therapy Neuromuscular ReEducation UE/LE ADL's with Assist Yes: supervision ADL Transfers with Assist Yes: supervision Toileting: Transfers,Clothing Management Yes: ,Hygeine w/Assist supervision Light Kitchen/Laundry w/Assist Yes: min-modA Progression Toward Outcome/Goals Progressing Outcome/Goals Met Pt continuing to progress slowly toward goals, increasing incorporation of RUE during ADL routine this date, able to wash LUE fully and apply deodorant appropriately using RUE this date without assistance. Communication-Improve/Maintain Start: 11/21/17 15:20 Freq: DAILY@1200 Status: Active Target: Protocol: Activity Type Activity Date Activity User E-Sign Co-Sign Detail Recorded Client Recorded Date Recorded By Document 12/04/17 12:26 [id number] [email or web address] 05/01/18 12:27 [id number] 12/04/17 12:26 PMRU Outcome: Communication/Cognitive Status Outcome/Goals Use Comm Tools/ Devices Makes Needs Known Effectively Other Outcomes/Goals COMPREHENSION Long-Term Goals : 1) Patient will follow 1-step verbal directions, with greater than 80% accuracy, I'ly. 2) Patient will identify spatial concepts, body parts, familiar objects and pictures, with greater than 80 % accuracy, I' ly. 3) Patient will read numbers and functional words with greater than 80 % accuracy, I' ly Short-Term Goals: 1B) Patient will follow simple 1-step verbal directions, with 70% accuracy, given moderate verbal cueing, without visual cues. Status: Progressing slowly as expected. Patient followed directions with 70% accuracy, given visual demonstratipon and several repetitions of verbal command. Patient did not initiate repsonses given silent waiting or verbal "I can wait.". 2B) Patient will identify spatial concepts, body parts, familiar objects and pictures, with 50% accuracy, given moderate verbal cueing, without visual cues. Status: Progressing slowly as expected. Given verbal description of actions, patient pointed to pictures of the objects of the action ( example: sit... chair), given moderate verbal cues, with 30% accuracy, and required maximum cueing with direct visual model for 50% of trials 3A) Patient will read numerals, letters, and common words with 80% accuracy, given moderate cueing. Status: Progressing slowly as expected. Patient read communication cards and photo labels with 60 % accuracy when given large print labels under pictures. EXPRESSION Long-Term Goals : 1) Patient will verbally answer functional questions and express medical and social narratives with greater than 80% accuracy, I 'ly. 2) Patient will name spatial concepts, body parts, familiar objects and pictures, with 80% accuracy, I 'ly. 3) Patient will write numbers and functional words with greater than 80 % accuracy, I' ly Short-Term Goals: 1A) Patient will name spatial concepts, body parts, familiar objects and pictures, with 70% accuracy, given moderate cueing. Status: Progressing slowly as expected. Patient required maximal cueing to name the labeled pictures on the communication cards she has has for one week. 2) Patient will use conversational repair strategies to find words by asking for help , hinting, and repeating target words in meaningful sentences, with 50% accuracy, given maximal cueing. Status: Progressing slowly as expected. Patient required maximal cueing to role-play using the cards to ask for needs. 3) Patient will write numerals , letters and her name with 60% accuracy, given maximal cueing. Status: Progressing slowly as expected. PROBLEM SOLVING Long-Term Goal: Patient will solve simple functional problems ( sequencing, counting, safety) with 80 % accuracy given minimal cueing. Short-Term Goal : Patient will solve simple functional problems with 50% accuracy given maximum cueing. Progression Toward Outcomes/Goals Progressing Outcome/Goals Met Use Comm Tools/ Devices Coping/Psych-Improve/Maintain Start: 11/21/17 15:20 Freq: DAILY@1200 Status: Active Target: Protocol: Activity Type Activity Date Activity User E-Sign Co-Sign Detail Recorded Client Recorded Date Recorded By Document 12/04/17 00:02 [id number] [id number] 12/04/17 00:02 [id number] 12/04/17 00:02 PMRU Outcome: Coping/Psychosocial Coping Outcome/Goals Verbalization of Acceptance of Rehab Admit Verbalization of Sense of Control Over Health Status Willingness to Participate in Treatment Plan and Basic Needs Psychosocial Outcome/Goals Maintain/ Improve Emotional Health Cooperate/ Participate in Plan Progression Toward Outcome/Goals - Progressing Coping Progression Toward Outcome/Goals - Progressing Psychosocial DVT Prophylaxis- Improve/Maintain Start: 11/21/17 15:20 Freq: DAILY@1200 Status: Active Target: Protocol: Activity Type Activity Date Activity User E-Sign Co-Sign Detail Recorded Client Recorded Date Recorded By Document 12/04/17 00:02 [id number] 12/04/17 00:02 [id number] 12/04/17 00:02 PMRU Outcome: DVT Prophylaxis Outcome/Goals Remains Free of DVT Complies with DVT Prophylaxis /Treatment TEDS Stockings on Every AM, Off at HS Progression Toward Outcome/Goals Progressing Discharge Planning - Improve/Maintain Start: 11/21/17 15:20 Freq: DAILY@1200 Status: Active Target: Protocol: Activity Type Activity Date Activity User E-Sign Co-Sign Detail Recorded Client Recorded Date Recorded By Document 12/02/17 22:04 [id number] [email or web address] 12/02/17 22:05 [id number] 12/02/17 22:04 PMRU Outcome: Discharge Planning Update Patient Family No Outcome/Goals Demonstrates Understanding of Discharge Plan Progression Toward Outcome/Goals Progressing Education-Improve/Maintain Start: 11/21/17 15:20 Freq: DAILY@1200 Status: Active Target: Protocol: Activity Type Activity Date Activity User E-Sign Co-Sign Detail Recorded Client Recorded Date Recorded By Document 12/04/17 00:02 [id number] [email or web address] 12/04/17 00:02 [id number] 12/04/17 00:02 PMRU Outcome: Education Outcome/Goals Encourage Questions Progression Toward Outcome/Goals Progressing /GI-Improve/Maintain Start: 11/21/17 15:20 Freq: DAILY@1200 Status: Active Target: Protocol: Activity Type Activity Date Activity User E-Sign Co-Sign Detail Recorded Client Recorded Date Recorded By Document 12/04/17 00:02 [id number] 12/04/17 00:02 12/04/17 00:02 PMRU Outcome: Genitourinary/ Gastrointestinal Genitourinary- Outcome/Goals Maintain/ Achieve Urinary Continence Gastrointestinal-Outcome/Goals Maintain/ Achieve Bowel Regularity in Accordance with Pt's Baseline Prevent Constipation Laxatives as Ordered Progression Toward Outcome/Goals - Progressing Progression Toward Outcome/Goals - GI Progressing Medication Administration Start: 11/21/17 15:20 Freq: DAILY@1200 Status: Active Target: Protocol: Activity Type Activity Date Activity User E-Sign Co-Sign Detail Recorded Client Recorded Date Recorded By Document 12/04/17 00:02 [id number] 12/04/17 00:02 [id number] 12/04/17 00:02 PMRU Outcome: Medication Administration Assess Patient Knowledge/Teach Med No Education for all Meds Outcome/Goals Family/ Caregiver Administer Medications at Home Progression Towards Outcome/Goals Goals Adjusted Is Patient Going Home on Lovenox? No Neurological- Improve/Maintain Start: 11/21/17 15:20 Freq: DAILY@1200 Status: Active Target: Protocol: Activity Type Activity Date Activity User E-Sign Co-Sign Detail Recorded Client Recorded Date Recorded By Document 12/04/17 00:02 [id number] 12/04/17 00:02 [id number] 12/04/17 00:02 PMRU Outcome: Neurological Weakness/Aphasia Weakness Aphasia Right Side Outcome/Goals Maintain/ Achieve Baseline Neurological Status Improve Neurological Status Maintain/ Improve Strength/ROM Progression Toward Outcome/Goals Progressing Safety- Improve/Maintain Start: 11/21/17 15:20 Freq: DAILY@1200 Status: Active Target: Protocol: Activity Type Activity Date Activity User E-Sign Co-Sign Detail Recorded Client Recorded Date Recorded By Document 12/04/17 00:02 [id number] [email or web address] 12/04/17 00:02 [id number] 12/04/17 00:02 PMRU Outcome: Safety Outcome/Goals Remain Free of Injury or Harm Prevent Falls/ Injury Progression Toward Outcome/Goals Progressing Medicine Note: Length of Stay: 2 1/2 weeks Anticipated Discharge Destination: Home Tentative Discharge Date: 12/21/17 Discharged to: Home
--- NOTE | 2017-12-04 16:18 | PN ---
Progress Note Date of Service: 12/04/17 Note: TEJAS TAVARES was visited. Therapy notes read and reviewed. She was discussed in interdisciplinary team rounds. She remains limited by her communication impairments from her aphasia. Current Medications: Active Medications Generic Name Dose Route Start Last Admin Trade Name Freq PRN Reason Stop Dose Admin Acetaminophen 650 mg 11/21/17 12:38 Tylenol Tab* PO Q6H PRN FEVER/PAIN Al Hydrox/Mg Hydrox/Simethicone 30 ml 11/28/17 10:12 Maalox Plus* PO Q6H PRN DYSPEPSIA Atorvastatin Calcium 80 mg 11/22/17 17:00 12/03/17 17:38 Lipitor* PO 80 mg 1700 CHAD Administration Bisacodyl 10 mg 11/25/17 09:07 11/30/17 21:58 Dulcolax Supp* NC 10 mg DAILY PRN Administration CONSTIPATION Docusate Sodium 100 mg 11/21/17 21:00 12/04/17 09:02 Colace Cap* PO 100 mg BID CHAD Administration Fluoxetine HCl 20 mg 12/02/17 08:00 12/04/17 09:02 Prozac Cap* PO 20 mg DAILY CHAD Administration Hydralazine HCl 5 mg 11/24/17 17:06 Apresoline Tab* PO Q6H PRN SBP > 180 Lisinopril 10 mg 12/04/17 08:00 12/04/17 09:02 Prinivil Tab* PO 10 mg Q24H CHAD Administration Magnesium Hydroxide 30 ml 11/21/17 12:38 11/28/17 12:38 Milk Of Magnesia Liq* PO 30 ml Q6H PRN Administration CONSTIPATION Magnesium Oxide 400 mg 11/22/17 09:00 12/04/17 09:02 Magox 400 Tab* PO 400 mg DAILY CHAD Administration Metoprolol Tartrate 50 mg 12/01/17 21:00 12/04/17 09:02 Lopressor Tab* PO 50 mg Q12HR CHAD Administration Pharmacy Profile Note 1 note 11/27/17 17:00 12/03/17 17:39 Coumadin Daily Reminder* FOLLOW UP 1 note 1700 CHAD Administration Polyethylene Glycol/Electrolytes 17 gm 11/29/17 09:00 12/04/17 09:02 Miralax* PO 17 gm DAILY CHAD Administration Potassium Chloride 20 meq 11/22/17 09:00 12/04/17 09:03 Klor Con Er Tab* PO 20 meq DAILY CHAD Administration Senna 2 tab 11/24/17 21:00 12/03/17 19:59 Senokot Tab* PO 2 tab BEDTIME CHAD Administration Sodium Biphosphate/Sodium Phosphate 1 bottle 11/28/17 18:07 11/28/17 21:30 Fleet Enema* NC 1 bottle DAILY PRN Administration CONSTIPATION Warfarin Sodium 3 mg 12/02/17 08:10 12/03/17 17:38 Coumadin Tab(*) PO 3 mg DAILY@1700 CHAD Administration Protocol Vital Signs: Vital Signs Temp Pulse Resp BP Pulse Ox 99.7 F 48 24 152/80 99 12/04/17 15:17 12/04/17 15:26 12/04/17 15:17 12/04/17 15:26 12/04/17 15:17 Exam: LUNGS: Clear HEART: irreg rhythm ABDOMEN: Soft, Distended, +BS EXTREMITIES: Slightly increased tone, RUE NEUROLOGIC: alert, aphasic. Right handgrip 4/5. Right leg 4/5 Assessment/Plan: 1. 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 Regular consistency diet/thin liquids. Prozac, 20 mg 2. Proxysmal Atrial fibrillation. Continue Coumadin and Lopressor with parameters. Check INR 3. Secondary Stroke Prevention: Lipitor/Coumadin 4. DVT Prophylaxis: Coumadin 5. HTN: Lopressor/Lisinopril. BPs now running higher. Lisinopril now 10 QD and lopressor 50 BID 6. Urinary incontinence: timed voids. 7. Constipation: Had BM. Will order daily suppositories 8. Advanced directives: full code 9. Bradycardia: lopressor down to 50 mg BID 12/04/17 16:19
[2017-12-04] MEDS: Atorvastatin* 80 MG TAB PO SCH (16:36)
[2017-12-04] MEDS: Warfarin TAB(*) 3 MG PO SCH (16:36)
[2017-12-04] MEDS: Senna TAB PO SCH (20:14)
[2017-12-05 06:55] LABS: INR 2.1 (0.77-1.02)
[2017-12-05] MEDS: Lisinopril TAB* 10 MG PO SCH (07:23)
[2017-12-05] MEDS: FLUoxetine CAP* 20 MG PO SCH (07:23)
[2017-12-05] MEDS: Magnesium Oxide TAB* 400 MG PO SCH (07:23)
[2017-12-05] MEDS: Docusate CAP* 100 MG PO SCH ×2 (07:23→20:41)
[2017-12-05] MEDS: Metoprolol Tartrate TAB* 50 mg PO SCH ×2 (07:23→20:41)
[2017-12-05] MEDS: Potassium Chlor TAB* 20 MEQ TAB.ER PO SCH (07:23)
[2017-12-05] MEDS: Bisacodyl SUPP* 10 MG SUPP PR SCH (07:24)
[2017-12-05] MEDS: Polyethylene Glycol 3350* 17 GM PACKET PO SCH (07:24)
[2017-12-05] MEDS: Warfarin TAB(*) 3 MG PO SCH (17:35)
[2017-12-05] MEDS: Warfarin TAB(*) 4 MG PO SCH (17:38)
[2017-12-05] MEDS: Atorvastatin* 80 MG TAB PO SCH (17:39)
[2017-12-05] MEDS: Senna TAB PO SCH (20:41)
--- NOTE | 2017-12-05 22:43 | PN ---
Progress Note Date of Service: 12/05/17 Note: TEJAS TAVARES was visited. Therapy notes read and reviewed. Stroke education with her longtime partner held today. Training with therapists regarding how to deal with aphasia. Will need hands on to see how to manage bowel and bladder. Will bump up Coumadin as INR has fallen Current Medications: Active Medications Generic Name Dose Route Start Last Admin Trade Name Freq PRN Reason Stop Dose Admin Acetaminophen 650 mg 11/21/17 12:38 Tylenol Tab* PO Q6H PRN FEVER/PAIN Al Hydrox/Mg Hydrox/Simethicone 30 ml 11/28/17 10:12 Maalox Plus* PO Q6H PRN DYSPEPSIA Atorvastatin Calcium 80 mg 11/22/17 17:00 12/05/17 17:39 Lipitor* PO 80 mg 1700 CHAD Administration Bisacodyl 10 mg 12/05/17 09:00 12/05/17 07:24 Dulcolax Supp* MD 10 mg DAILY CHAD Administration Docusate Sodium 100 mg 11/21/17 21:00 12/05/17 20:41 Colace Cap* PO 100 mg BID CHAD Administration Fluoxetine HCl 20 mg 12/02/17 08:00 12/05/17 07:23 Prozac Cap* PO 20 mg DAILY CHAD Administration Hydralazine HCl 5 mg 11/24/17 17:06 Apresoline Tab* PO Q6H PRN SBP > 180 Lisinopril 10 mg 12/04/17 08:00 12/05/17 07:23 Prinivil Tab* PO 10 mg Q24H CHAD Administration Magnesium Hydroxide 30 ml 11/21/17 12:38 11/28/17 12:38 Milk Of Magnesia Liq* PO 30 ml Q6H PRN Administration CONSTIPATION Magnesium Oxide 400 mg 11/22/17 09:00 12/05/17 07:23 Magox 400 Tab* PO 400 mg DAILY CHAD Administration Metoprolol Tartrate 50 mg 12/01/17 21:00 12/05/17 20:41 Lopressor Tab* PO 50 mg Q12HR CHAD Administration Pharmacy Profile Note 1 note 11/27/17 17:00 12/05/17 17:39 Coumadin Daily Reminder* FOLLOW UP 1 note 1700 CHAD Administration Polyethylene Glycol/Electrolytes 17 gm 11/29/17 09:00 12/05/17 07:24 Miralax* PO 17 gm DAILY CHAD Administration Potassium Chloride 20 meq 11/22/17 09:00 12/05/17 07:23 Klor Con Er Tab* PO 20 meq DAILY CHAD Administration Senna 2 tab 11/24/17 21:00 12/05/17 20:41 Senokot Tab* PO 2 tab BEDTIME CHAD Administration Sodium Biphosphate/Sodium Phosphate 1 bottle 11/28/17 18:07 11/28/17 21:30 Fleet Enema* MD 1 bottle DAILY PRN Administration CONSTIPATION Warfarin Sodium 4 mg 12/05/17 18:00 12/05/17 17:38 Coumadin Tab(*) PO 4 mg DAILY@1700 CHAD Administration Protocol Vital Signs: Vital Signs Temp Pulse Resp BP Pulse Ox 98.4 F 49 16 142/80 97 12/05/17 17:46 12/05/17 17:46 12/05/17 05:59 12/05/17 17:48 12/05/17 19:18 Lab Results: Laboratory Results - last 24 hr 12/05/17 06:15 INR (Anticoag Therapy) 2.10 H Exam: LUNGS: Clear HEART: irreg rhythm ABDOMEN: Soft, Distended, +BS EXTREMITIES: Slightly increased tone, RUE NEUROLOGIC: alert, aphasic. Right handgrip 4/5. Right leg 4/5 Assessment/Plan: 1. 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 PT/OT/ABSTRACTER. Regular consistency diet/thin liquids. Prozac, 20 mg 2. Proxysmal Atrial fibrillation. Continue Coumadin, and Lopressor with parameters. Increase Coumadin to 4 mg 3. Secondary Stroke Prevention: Lipitor/Coumadin 4. DVT Prophylaxis: Coumadin 5. HTN: Lopressor/Lisinopril. BPs now running higher. Lisinopril now 10 QD and lopressor 50 BID 6. Urinary incontinence: timed voids. 7. Constipation: Had BM. Will order daily suppositories 8. Advanced directives: full code 9. Bradycardia: lopressor down to 50 mg BID 12/05/17 22:43
[2017-12-06] MEDS: Lisinopril TAB* 10 MG PO SCH (08:06)
[2017-12-06] MEDS: Docusate CAP* 100 MG PO SCH ×2 (08:06→19:52)
[2017-12-06] MEDS: Bisacodyl SUPP* 10 MG SUPP PR SCH ×2 (08:06→09:01)
[2017-12-06] MEDS: Magnesium Oxide TAB* 400 MG PO SCH (08:06)
[2017-12-06] MEDS: FLUoxetine CAP* 20 MG PO SCH (08:06)
[2017-12-06] MEDS: Metoprolol Tartrate TAB* 50 mg PO SCH ×2 (08:06→19:53)
[2017-12-06] MEDS: Polyethylene Glycol 3350* 17 GM PACKET PO SCH (08:06)
[2017-12-06] MEDS: Potassium Chlor TAB* 20 MEQ TAB.ER PO SCH (08:06)
[2017-12-06] MEDS: Atorvastatin* 80 MG TAB PO SCH (17:03)
[2017-12-06] MEDS: Warfarin TAB(*) 4 MG PO SCH (17:04)
--- NOTE | 2017-12-06 18:17 | PN ---
Progress Note Date of Service: 12/06/17 Note: TEJAS TAVARES was visited. Therapy notes read and reviewed. Her SO, Cem , still wants to take her home. Will try to make sure that he is prepared Current Medications: Active Medications Generic Name Dose Route Start Last Admin Trade Name Freq PRN Reason Stop Dose Admin Acetaminophen 650 mg 11/21/17 12:38 Tylenol Tab* PO Q6H PRN FEVER/PAIN Al Hydrox/Mg Hydrox/Simethicone 30 ml 11/28/17 10:12 Maalox Plus* PO Q6H PRN DYSPEPSIA Atorvastatin Calcium 80 mg 11/22/17 17:00 12/06/17 17:03 Lipitor* PO 80 mg 1700 CHAD Administration Bisacodyl 10 mg 12/05/17 09:00 12/06/17 09:01 Dulcolax Supp* [place] Not Given DAILY CHAD Docusate Sodium 100 mg 11/21/17 21:00 12/06/17 08:06 Colace Cap* PO 100 mg BID CHAD Administration Fluoxetine HCl 20 mg 12/02/17 08:00 12/06/17 08:06 Prozac Cap* PO 20 mg DAILY CHAD Administration Hydralazine HCl 5 mg 11/24/17 17:06 Apresoline Tab* PO Q6H PRN SBP > 180 Lisinopril 10 mg 12/04/17 08:00 12/06/17 08:06 Prinivil Tab* PO 10 mg Q24H CHAD Administration Magnesium Hydroxide 30 ml 11/21/17 12:38 11/28/17 12:38 Milk Of Magnesia Liq* PO 30 ml Q6H PRN Administration CONSTIPATION Magnesium Oxide 400 mg 11/22/17 09:00 12/06/17 08:06 Magox 400 Tab* PO 400 mg DAILY CHAD Administration Metoprolol Tartrate 50 mg 12/01/17 21:00 12/06/17 08:06 Lopressor Tab* PO 50 mg Q12HR CHAD Administration Pharmacy Profile Note 1 note 11/27/17 17:00 12/06/17 17:04 Coumadin Daily Reminder* FOLLOW UP 1 note 1700 CHAD Administration Polyethylene Glycol/Electrolytes 17 gm 11/29/17 09:00 12/06/17 08:06 Miralax* PO 17 gm DAILY CHAD Administration Potassium Chloride 20 meq 11/22/17 09:00 12/06/17 08:06 Klor Con Er Tab* PO 20 meq DAILY CHAD Administration Senna 2 tab 11/24/17 21:00 12/05/17 20:41 Senokot Tab* PO 2 tab BEDTIME CHDA Administration Sodium Biphosphate/Sodium Phosphate 1 bottle 11/28/17 18:07 11/28/17 21:30 Fleet Enema* [place] 1 bottle DAILY PRN Administration CONSTIPATION Warfarin Sodium 4 mg 12/05/17 18:00 12/06/17 17:04 Coumadin Tab(*) PO 4 mg DAILY@1700 CHAD Administration Protocol Vital Signs: Vital Signs Temp Pulse Resp BP Pulse Ox 97.7 F 46 16 140/80 96 12/06/17 15:42 12/06/17 15:43 12/06/17 15:42 12/06/17 15:43 12/06/17 17:30 Exam: LUNGS: Clear HEART: irreg rhythm ABDOMEN: Soft, Distended, +BS EXTREMITIES: Slightly increased tone, RUE NEUROLOGIC: alert, aphasic. Right handgrip 4/5. Right leg 4/5 Assessment/Plan: 1. 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 Regular consistency diet/thin liquids. Prozac, 20 mg 2. Proxysmal Atrial fibrillation. Continue Coumadin, and Lopressor with parameters. Increased Coumadin to 4 mg 3. Secondary Stroke Prevention: Lipitor/Coumadin 4. DVT Prophylaxis: Coumadin 5. HTN: Lopressor/Lisinopril. BPs now running higher. Lisinopril now 10 QD and lopressor 50 BID 6. Urinary incontinence: timed voids. 7. Constipation: Had BM. Will order daily suppositories 8. Advanced directives: full code 9. Bradycardia: lopressor down to 50 mg BID 12/06/17 18:17
[2017-12-06] MEDS: Senna TAB PO SCH (19:52)
[2017-12-07 06:56] LABS: ABS Basophils 0 10^3/ul (0-0.2); ABS Eosinophils 0.1 10^3/ul (0-0.6); ABS Monocytes 0.5 10^3/ul (0-0.8); ABS Neutrophils 6.9 10^3/ul (1.5-7.7); ABS Nucleated RBC 0 10^3/ul; Hematocrit 37 % (35-47); Hemoglobin 12.8 g/dl (12.0-16.0); Lymphocyte % 11.6 % (25-47); Mean Corpuscular HGB Conc 35 g/dl (31-36); Mean Corpuscular Hemoglobin 33 pg (27-31); Mean Corpuscular Volume 95 fL (80-97); Mean Platelet Volume 8.8 um3 (7.4-10.4); Nucleated Red Blood Cells % 0; Platelet Count 161 10^3/ul (150-450); Red Blood Count 3.93 10^6/ul (4.0-5.4); Red Cell Distribution Width 15 % (10.5-15); White Blood Count 8.4 10^3/ul (3.5-10.8)
[2017-12-07 06:59] LABS: INR 2.83 (0.77-1.02)
[2017-12-07 07:10] LABS: EGFR Non-African American 84.9 (>60)
[2017-12-07] MEDS: Bisacodyl SUPP* 10 MG SUPP PR SCH (07:21)
[2017-12-07] MEDS: Polyethylene Glycol 3350* 17 GM PACKET PO SCH (07:22)
[2017-12-07] MEDS: Lisinopril TAB* 10 MG PO SCH (07:24)
[2017-12-07] MEDS: FLUoxetine CAP* 20 MG PO SCH (07:25)
[2017-12-07] MEDS: Docusate CAP* 100 MG PO SCH ×2 (07:25→19:56)
[2017-12-07] MEDS: Potassium Chlor TAB* 20 MEQ TAB.ER PO SCH (07:25)
[2017-12-07] MEDS: Metoprolol Tartrate TAB* 50 mg PO SCH ×2 (07:25→19:58)
[2017-12-07] MEDS: Magnesium Oxide TAB* 400 MG PO SCH (07:26)
--- NOTE | 2017-12-07 10:57 | PN ---
Progress Note Date of Service: 12/07/17 Note: TEJAS TAVARES was visited. Nursing and therapy notes read and reviewed. No chest pain or shortness of breath. When asked if she has pain she points to her abdomen. Intermittently continent vs incontinent of stool and urine. Current Medications: Active Medications Generic Name Dose Route Start Last Admin Trade Name Freq PRN Reason Stop Dose Admin Acetaminophen 650 mg 11/21/17 12:38 Tylenol Tab* PO Q6H PRN FEVER/PAIN Al Hydrox/Mg Hydrox/Simethicone 30 ml 11/28/17 10:12 Maalox Plus* PO Q6H PRN DYSPEPSIA Atorvastatin Calcium 80 mg 11/22/17 17:00 12/06/17 17:03 Lipitor* PO 80 mg 1700 CHAD Administration Bisacodyl 10 mg 12/05/17 09:00 12/07/17 07:21 Dulcolax Supp* [place] 10 mg DAILY CHAD Administration Docusate Sodium 100 mg 11/21/17 21:00 12/07/17 07:25 Colace Cap* PO 100 mg BID CHAD Administration Fluoxetine HCl 20 mg 12/02/17 08:00 12/07/17 07:25 Prozac Cap* PO 20 mg DAILY CHAD Administration Hydralazine HCl 5 mg 11/24/17 17:06 Apresoline Tab* PO Q6H PRN SBP > 180 Lisinopril 10 mg 12/04/17 08:00 12/07/17 07:24 Prinivil Tab* PO 10 mg Q24H CHAD Administration Magnesium Hydroxide 30 ml 11/21/17 12:38 11/28/17 12:38 Milk Of Magnesia Liq* PO 30 ml Q6H PRN Administration CONSTIPATION Magnesium Oxide 400 mg 11/22/17 09:00 12/07/17 07:26 Magox 400 Tab* PO 400 mg DAILY CHAD Administration Metoprolol Tartrate 50 mg 12/01/17 21:00 12/07/17 07:25 Lopressor Tab* PO 50 mg Q12HR CHAD Administration Pharmacy Profile Note 1 note 11/27/17 17:00 12/06/17 17:04 Coumadin Daily Reminder* FOLLOW UP 1 note 1700 CHAD Administration Polyethylene Glycol/Electrolytes 17 gm 11/29/17 09:00 12/07/17 07:22 Miralax* PO 17 gm DAILY CHAD Administration Potassium Chloride 20 meq 11/22/17 09:00 12/07/17 07:25 Klor Con Er Tab* PO 20 meq DAILY CHAD Administration Senna 2 tab 11/24/17 21:00 12/06/17 19:52 Senokot Tab* PO 2 tab BEDTIME CHAD Administration Sodium Biphosphate/Sodium Phosphate 1 bottle 11/28/17 18:07 11/28/17 21:30 Fleet Enema* [place] 1 bottle DAILY PRN Administration CONSTIPATION Warfarin Sodium 4 mg 12/05/17 18:00 12/06/17 17:04 Coumadin Tab(*) PO 4 mg DAILY@1700 CHAD Administration Protocol Vital Signs: Vital Signs Temp Pulse Resp BP Pulse Ox 100.2 F 52 18 140/78 94 12/07/17 05:38 12/07/17 05:38 12/07/17 05:38 12/07/17 05:38 12/07/17 05:38 Lab Results: Laboratory Results - last 24 hr 12/07/17 12/07/17 12/07/17 06:26 06:26 06:26 WBC 8.4 RBC 3.93 L Hgb 12.8 Hct 37 MCV 95 MCH 33 H MCHC 35 RDW 15 Plt Count 161 MPV 8.8 Neut % (Auto) 81.7 Lymph % (Auto) 11.6 L [place] % (Auto) 5.4 Eos % (Auto) 1.0 Baso % (Auto) 0.3 Absolute Neuts (auto) 6.9 Absolute Lymphs (auto) 1.0 Absolute Monos (auto) 0.5 Absolute Eos (auto) 0.1 Absolute Basos (auto) 0 Absolute Nucleated RBC 0 Nucleated RBC % 0 INR (Anticoag Therapy) 2.83 H Sodium 141 Potassium 3.5 Chloride 108 Carbon Dioxide 28 Anion Gap 5 BUN 17 Creatinine 0.67 Est GFR ( Amer) 109.2 Est GFR (Non-Af Amer) 84.9 BUN/Creatinine Ratio 25.4 H Glucose 88 Calcium 9.4 Total Bilirubin 0.50 AST 26 ALT 24 Alkaline Phosphatase 98 Total Protein 6.0 L Albumin 3.5 Globulin 2.5 Albumin/Globulin Ratio 1.4 Exam: GEN: No acute distress and was initially sleeping when I entered the room. Easily aroused to alert and appropriate. LUNGS: Clear to auscultation bilaterally HEART: regular rate and rhythm with occasional skipped beat ABDOMEN: + bowel sounds, soft, non-distended. No peritoneal signs or signs of discomfort with palpation, but she says "yes" when I ask if there is pain as I palpate. It is not specific to any region and she may be perseverating. EXTREMITIES: Slightly increased tone, RUE NEUROLOGIC: Aphasia. Right handgrip and shoulder flexion 4/5. Right ankle DF 5, hip flexion 4/5 Assessment/Plan: 81yo woman s/p left MCA CVA and embolectomy with right hemiparesis and aphasia. 1. 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 PT/OT/AGILE TEST LEAD. Regular consistency diet/thin liquids. Prozac, 20 mg 2. Proxysmal Atrial fibrillation. Continue Coumadin, and Lopressor with parameters. INR stable on 4 mg of coumadin 3. Secondary Stroke Prevention: Lipitor/Coumadin 4. DVT Prophylaxis: Coumadin 5. HTN: Lopressor/Lisinopril. BPs at times higher. Lisinopril 10mg QD and lopressor 50 BID 6. Urinary incontinence: timed voids. With mild fever this morning will check UA. May need to straight cath for sample. Nursing aware. 7. Constipation: Daily suppositories 8. Advanced directives: full code 9. Bradycardia: lopressor down to 50 mg BID 10. Advanced directives: full code. 12/07/17 10:57
[2017-12-07] MEDS: Atorvastatin* 80 MG TAB PO SCH (17:04)
[2017-12-07] MEDS: Warfarin TAB(*) 4 MG PO SCH (17:04)
[2017-12-07 18:53] LABS: Urine Appearance Cloudy; Urine Blood Negative (Negative); Urine Color Yellow; Urine Ketones Negative (Negative); Urine Protein Negative (Negative); Urine Red Blood Cell 2+(6-10/hpf) (Absent); Urine Specific Gravity 1.014 (1.010-1.030); Urine Urobilinogen Negative (Negative); Urine White Blood Cell 3+(>20/hpf) (Absent)
[2017-12-07] MEDS: Senna TAB PO SCH (19:56)
[2017-12-07] MEDS: Ciprofloxacin TAB* 500 MG PO SCH (20:53)
[2017-12-08] MEDS: Lisinopril TAB* 10 MG PO SCH (08:02)
[2017-12-08] MEDS: Ciprofloxacin TAB* 500 MG PO SCH ×2 (09:05→21:07)
[2017-12-08] MEDS: Magnesium Oxide TAB* 400 MG PO SCH (09:06)
[2017-12-08] MEDS: Docusate CAP* 100 MG PO SCH ×2 (09:06→21:08)
[2017-12-08] MEDS: Bisacodyl SUPP* 10 MG SUPP PR SCH (09:06)
[2017-12-08] MEDS: FLUoxetine CAP* 20 MG PO SCH (09:07)
[2017-12-08] MEDS: Metoprolol Tartrate TAB* 50 mg PO SCH ×2 (09:08→21:07)
[2017-12-08] MEDS: Potassium Chlor TAB* 20 MEQ TAB.ER PO SCH (09:08)
[2017-12-08] MEDS: Polyethylene Glycol 3350* 17 GM PACKET PO SCH (09:08)
[2017-12-08 10:01] LABS: INR 3.12 (0.77-1.02)
--- NOTE | 2017-12-08 10:18 | PN ---
Progress Note Date of Service: 12/08/17 Note: TEJAS TAVARES was visited. Nursing and therapy notes read and reviewed. Started cipro last night for UTI. No new pains. Still some lower abdominal discomfort. Current Medications: Active Medications Generic Name Dose Route Start Last Admin Trade Name Freq PRN Reason Stop Dose Admin Acetaminophen 650 mg 11/21/17 12:38 Tylenol Tab* PO Q6H PRN FEVER/PAIN Al Hydrox/Mg Hydrox/Simethicone 30 ml 11/28/17 10:12 Maalox Plus* PO Q6H PRN DYSPEPSIA Atorvastatin Calcium 80 mg 11/22/17 17:00 12/07/17 17:04 Lipitor* PO 80 mg 1700 CHAD Administration Bisacodyl 10 mg 12/05/17 09:00 12/08/17 09:06 Dulcolax Supp* [place] Not Given DAILY CHAD Ciprofloxacin 500 mg 12/07/17 21:00 12/08/17 09:05 Cipro Tab* PO 500 mg BID CHAD Administration Docusate Sodium 100 mg 11/21/17 21:00 12/08/17 09:06 Colace Cap* PO 100 mg BID CHAD Administration Fluoxetine HCl 20 mg 12/02/17 08:00 12/08/17 09:07 Prozac Cap* PO 20 mg DAILY CHAD Administration Hydralazine HCl 5 mg 11/24/17 17:06 Apresoline Tab* PO Q6H PRN SBP > 180 Lisinopril 10 mg 12/04/17 08:00 12/08/17 08:02 Prinivil Tab* PO 10 mg Q24H CHAD Administration Magnesium Hydroxide 30 ml 11/21/17 12:38 11/28/17 12:38 Milk Of Magnesia Liq* PO 30 ml Q6H PRN Administration CONSTIPATION Magnesium Oxide 400 mg 11/22/17 09:00 12/08/17 09:06 Magox 400 Tab* PO 400 mg DAILY CHAD Administration Metoprolol Tartrate 50 mg 12/01/17 21:00 12/08/17 09:08 Lopressor Tab* PO 50 mg Q12HR CHAD Administration Pharmacy Profile Note 1 note 11/27/17 17:00 12/07/17 17:06 Coumadin Daily Reminder* FOLLOW UP 1 note 1700 CHAD Administration Polyethylene Glycol/Electrolytes 17 gm 11/29/17 09:00 12/08/17 09:08 Miralax* PO Not Given DAILY CHAD Potassium Chloride 20 meq 11/22/17 09:00 12/08/17 09:08 Klor Con Er Tab* PO 20 meq DAILY CHAD Administration Senna 2 tab 11/24/17 21:00 12/07/17 19:56 Senokot Tab* PO 2 tab BEDTIME CHAD Administration Sodium Biphosphate/Sodium Phosphate 1 bottle 11/28/17 18:07 11/28/17 21:30 Fleet Enema* [place] 1 bottle DAILY PRN Administration CONSTIPATION Warfarin Sodium 4 mg 12/05/17 18:00 12/07/17 17:04 Coumadin Tab(*) PO 4 mg DAILY@1700 CHAD Administration Protocol Vital Signs: Vital Signs Temp Pulse Resp BP Pulse Ox 99.4 F 56 18 158/62 93 12/08/17 05:11 12/08/17 05:11 12/08/17 05:11 12/08/17 05:14 12/08/17 05:11 Lab Results: Laboratory Results - last 24 hr 12/07/17 12/08/17 18:40 09:40 INR (Anticoag Therapy) 3.12 H Urine Color Yellow Urine Appearance Cloudy Urine pH 6.0 Ur Specific [place] 1.014 Urine Protein Negative Urine Ketones Negative Urine Blood Negative Urine Nitrate Positive A Urine Bilirubin Negative Urine Urobilinogen Negative Ur Leukocyte Esterase 3+ A Urine WBC (Auto) 3+(>20/hpf) A Urine RBC (Auto) 2+(6-10/hpf) A Ur Squamous Epith Cells Present A Urine Bacteria Absent Urine Glucose Negative Urine Ascorbic Acid * A Exam: GEN: No acute distress. alert and appropriate. LUNGS: Clear to auscultation bilaterally HEART: regular rate and rhythm ABD: + bowel sounds, soft, non-distended. No peritoneal signs or signs of discomfort with palpation, but she says "yes" when I ask if there is pain as I palpate. It is not specific to any region and she may be perseverating. EXT: Slightly increased tone, RUE NEURO: Aphasia. Right handgrip and shoulder flexion 4/5. Right ankle DF 5, hip flexion 4/5 Assessment/Plan: 81yo woman s/p left MCA CVA and embolectomy with right hemiparesis and aphasia. 1. 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 Regular consistency diet/thin liquids. Prozac, 20 mg 2. Proxysmal Atrial fibrillation. Continue Coumadin, and Lopressor with parameters. INR supratherapeutic today. Need to watch closely while on cipro. Decrease coumadin to 2mg. INR in AM 3. Secondary Stroke Prevention: Lipitor/Coumadin 4. DVT Prophylaxis: Coumadin 5. HTN: Lopressor/Lisinopril. BPs at times higher. Lisinopril 10mg QD and lopressor 50 BID 6. UTI and Urinary incontinence: On cipro day 2. Pending culture. timed voids. 7. Constipation: Daily suppositories 8. Advanced directives: full code 9. Bradycardia: lopressor down to 50 mg BID 10. Advanced directives: full code. 12/08/17 10:19
[2017-12-08] MEDS: Atorvastatin* 80 MG TAB PO SCH (17:00)
[2017-12-08] MEDS ORDERED: Warfarin TAB(*) 4 MG PO SCH (17:00)
[2017-12-08] MEDS: Senna TAB PO SCH (21:08)
[2017-12-09 06:14] LABS: INR 2.99 (0.77-1.02)
[2017-12-09] MEDS: Lisinopril TAB* 10 MG PO SCH (07:58)
[2017-12-09] MEDS: FLUoxetine CAP* 20 MG PO SCH (09:13)
[2017-12-09] MEDS: Bisacodyl SUPP* 10 MG SUPP PR SCH (09:13)
[2017-12-09] MEDS: Polyethylene Glycol 3350* 17 GM PACKET PO SCH (09:13)
[2017-12-09] MEDS: Docusate CAP* 100 MG PO SCH ×2 (09:14→21:10)
[2017-12-09] MEDS: Metoprolol Tartrate TAB* 50 mg PO SCH ×2 (09:14→21:10)
[2017-12-09] MEDS: Potassium Chlor TAB* 20 MEQ TAB.ER PO SCH (09:14)
[2017-12-09] MEDS: Magnesium Oxide TAB* 400 MG PO SCH (09:14)
[2017-12-09] MEDS: Ciprofloxacin TAB* 500 MG PO SCH ×2 (09:16→21:10)
--- NOTE | 2017-12-09 10:33 | PN ---
Progress Note Date of Service: 12/09/17 Note: TEJAS TAVARES was visited. Nursing notes read and reviewed. She got up on her own yesterday and tried to get to the bathroom. Still reports some lower abdominal discomfort. It is not bad enough to use hot/cold packs or medication. +BM today. Current Medications: Active Medications Generic Name Dose Route Start Last Admin Trade Name Freq PRN Reason Stop Dose Admin Acetaminophen 650 mg 11/21/17 12:38 Tylenol Tab* PO Q6H PRN FEVER/PAIN Al Hydrox/Mg Hydrox/Simethicone 30 ml 11/28/17 10:12 Maalox Plus* PO Q6H PRN DYSPEPSIA Atorvastatin Calcium 80 mg 11/22/17 17:00 12/08/17 17:00 Lipitor* PO 80 mg 1700 CHAD Administration Bisacodyl 10 mg 12/05/17 09:00 12/09/17 09:13 Dulcolax Supp* [place] 10 mg DAILY CHAD Administration Ciprofloxacin 500 mg 12/07/17 21:00 12/09/17 09:16 Cipro Tab* PO 500 mg BID CHAD Administration Docusate Sodium 100 mg 11/21/17 21:00 12/09/17 09:14 Colace Cap* PO 100 mg BID CHAD Administration Fluoxetine HCl 20 mg 12/02/17 08:00 12/09/17 09:13 Prozac Cap* PO 20 mg DAILY CHAD Administration Hydralazine HCl 5 mg 11/24/17 17:06 Apresoline Tab* PO Q6H PRN SBP > 180 Lisinopril 10 mg 12/04/17 08:00 12/09/17 07:58 Prinivil Tab* PO 10 mg Q24H CHAD Administration Magnesium Hydroxide 30 ml 11/21/17 12:38 11/28/17 12:38 Milk Of Magnesia Liq* PO 30 ml Q6H PRN Administration CONSTIPATION Magnesium Oxide 400 mg 11/22/17 09:00 12/09/17 09:14 Magox 400 Tab* PO 400 mg DAILY CHAD Administration Metoprolol Tartrate 50 mg 12/01/17 21:00 12/09/17 09:14 Lopressor Tab* PO 50 mg Q12HR CHAD Administration Pharmacy Profile Note 1 note 11/27/17 17:00 12/08/17 17:01 Coumadin Daily Reminder* FOLLOW UP 1 note 1700 CHAD Administration Polyethylene Glycol/Electrolytes 17 gm 11/29/17 09:00 12/09/17 09:13 Miralax* PO 17 gm DAILY CHAD Administration Potassium Chloride 20 meq 11/22/17 09:00 12/09/17 09:14 Klor Con Er Tab* PO 20 meq DAILY CHAD Administration Senna 2 tab 11/24/17 21:00 12/08/17 21:08 Senokot Tab* PO 2 tab BEDTIME CHAD Administration Sodium Biphosphate/Sodium Phosphate 1 bottle 11/28/17 18:07 11/28/17 21:30 Fleet Enema* [place] 1 bottle DAILY PRN Administration CONSTIPATION Warfarin Sodium 3 mg 12/09/17 17:00 Coumadin Tab(*) PO DAILY@1700 [facility] Protocol Vital Signs: Vital Signs Temp Pulse Resp BP Pulse Ox 99.2 F 82 18 162/74 98 12/09/17 06:06 12/09/17 06:06 12/09/17 06:06 12/09/17 06:06 12/09/17 06:06 Lab Results: Laboratory Results - last 24 hr 12/09/17 05:53 INR (Anticoag Therapy) 2.99 H Urine culture from 12/07/17 shows >100K E.coli and pending sensitivities. Exam: GEN: No acute distress. alert and appropriate. LUNGS: Clear to auscultation bilaterally HEART: regular rate and rhythm ABD: + bowel sounds, soft, non-distended. No peritoneal signs or signs of discomfort with palpation. Today she says "no" when I ask if there is pain as I palpate. EXT: Slightly increased tone, RUE NEURO: Aphasia. Right handgrip and shoulder flexion 4/5. Right ankle DF 5, hip flexion 4+/5 Assessment/Plan: 81yo woman s/p left MCA CVA and embolectomy with right hemiparesis and aphasia. 1. 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 Regular consistency diet/thin liquids. Prozac, 20 mg 2. Proxysmal Atrial fibrillation. Continue Coumadin, and Lopressor with parameters. INR better today after 2mg last night. Will give 3mg tonight. Need to watch closely while on cipro. INR in AM 3. Secondary Stroke Prevention: Lipitor/Coumadin 4. DVT Prophylaxis: Coumadin 5. HTN: Lopressor/Lisinopril. BPs at times higher. Lisinopril 10mg QD and lopressor 50 BID 6. UTI with E.coli and Urinary incontinence: On cipro day 3. Pending culture sensitivities. timed voids. 7. Constipation: Daily suppositories 8. Advanced directives: full code 9. Bradycardia: lopressor down to 50 mg BID 12/09/17 10:33
[2017-12-09] MEDS: Atorvastatin* 80 MG TAB PO SCH (16:43)
[2017-12-09] MEDS: Warfarin TAB(*) 3 MG PO SCH (16:43)
[2017-12-09] MEDS: Senna TAB PO SCH (21:10)
[2017-12-10 06:21] LABS: INR 2.9 (0.77-1.02)
[2017-12-10] MEDS: Lisinopril TAB* 10 MG PO SCH (07:56)
[2017-12-10] MEDS: Ciprofloxacin TAB* 500 MG PO SCH ×2 (07:56→20:03)
[2017-12-10] MEDS: Bisacodyl SUPP* 10 MG SUPP PR SCH (07:56)
[2017-12-10] MEDS: Docusate CAP* 100 MG PO SCH ×2 (07:57→19:10)
[2017-12-10] MEDS: FLUoxetine CAP* 20 MG PO SCH (07:57)
[2017-12-10] MEDS: Potassium Chlor TAB* 20 MEQ TAB.ER PO SCH (07:58)
[2017-12-10] MEDS: Magnesium Oxide TAB* 400 MG PO SCH (07:58)
[2017-12-10] MEDS: Polyethylene Glycol 3350* 17 GM PACKET PO SCH (07:59)
[2017-12-10] MEDS: Metoprolol Tartrate TAB* 50 mg PO SCH ×2 (07:59→20:03)
--- NOTE | 2017-12-10 16:17 | PN ---
Progress Note Date of Service: 12/10/17 Note: TEJAS TAVARES was visited. Therapy notes read and reviewed. she was observed getting up on her own over the weekend. Her balance is ok. Remains with receptive and expressive aphasia Current Medications: Active Medications Generic Name Dose Route Start Last Admin Trade Name Freq PRN Reason Stop Dose Admin Acetaminophen 650 mg 11/21/17 12:38 Tylenol Tab* PO Q6H PRN FEVER/PAIN Al Hydrox/Mg Hydrox/Simethicone 30 ml 11/28/17 10:12 Maalox Plus* PO Q6H PRN DYSPEPSIA Atorvastatin Calcium 80 mg 11/22/17 17:00 12/09/17 16:43 Lipitor* PO 80 mg 1700 CHAD Administration Bisacodyl 10 mg 12/05/17 09:00 12/10/17 07:56 Dulcolax Supp* [place] 10 mg DAILY CHAD Administration Ciprofloxacin 500 mg 12/07/17 21:00 12/10/17 07:56 Cipro Tab* PO 500 mg BID CHAD Administration Docusate Sodium 100 mg 11/21/17 21:00 12/10/17 07:57 Colace Cap* PO 100 mg BID CHAD Administration Fluoxetine HCl 20 mg 12/02/17 08:00 12/10/17 07:57 Prozac Cap* PO 20 mg DAILY CHAD Administration Hydralazine HCl 5 mg 11/24/17 17:06 Apresoline Tab* PO Q6H PRN SBP > 180 Lisinopril 10 mg 12/04/17 08:00 12/10/17 07:56 Prinivil Tab* PO 10 mg Q24H CHAD Administration Magnesium Hydroxide 30 ml 11/21/17 12:38 11/28/17 12:38 Milk Of Magnesia Liq* PO 30 ml Q6H PRN Administration CONSTIPATION Magnesium Oxide 400 mg 11/22/17 09:00 12/10/17 07:58 Magox 400 Tab* PO 400 mg DAILY CHAD Administration Metoprolol Tartrate 50 mg 12/01/17 21:00 12/10/17 07:59 Lopressor Tab* PO 50 mg Q12HR CHAD Administration Pharmacy Profile Note 1 note 11/27/17 17:00 12/09/17 16:38 Coumadin Daily Reminder* FOLLOW UP Not Given 1700 CHAD Polyethylene Glycol/Electrolytes 17 gm 11/29/17 09:00 12/10/17 07:59 Miralax* PO 17 gm DAILY CHAD Administration Potassium Chloride 20 meq 11/22/17 09:00 12/10/17 07:58 Klor Con Er Tab* PO 20 meq DAILY CHAD Administration Senna 2 tab 11/24/17 21:00 12/09/17 21:10 Senokot Tab* PO Not Given BEDTIME CHAD Sodium Biphosphate/Sodium Phosphate 1 bottle 11/28/17 18:07 11/28/17 21:30 Fleet Enema* [place] 1 bottle DAILY PRN Administration CONSTIPATION Warfarin Sodium 3 mg 12/09/17 17:00 12/09/17 16:43 Coumadin Tab(*) PO 3 mg DAILY@1700 CHAD Administration Protocol Vital Signs: Vital Signs Temp Pulse Resp BP Pulse Ox 97.9 F 54 16 124/73 99 12/10/17 15:58 12/10/17 15:58 12/10/17 15:58 12/10/17 15:58 12/10/17 15:58 Lab Results: Laboratory Results - last 24 hr 12/10/17 05:58 INR (Anticoag Therapy) 2.90 H Exam: LUNGS: Clear to auscultation bilaterally HEART: regular rate and rhythm ABD: + bowel sounds, soft, non-distended. No peritoneal signs or signs of discomfort with palpation. EXT: Slightly increased tone, RUE NEURO: Aphasia. Right handgrip and shoulder flexion 4/5. Right ankle DF 5, hip flexion 4+/5 Assessment/Plan: 1. 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 Regular consistency diet/thin liquids. Prozac, 20 mg 2. Proxysmal Atrial fibrillation. Continue Coumadin, and Lopressor with parameters. INR better today after 2mg last night. Will give 3mg tonight. Need to watch closely while on cipro. INR 3. Secondary Stroke Prevention: Lipitor/Coumadin 4. DVT Prophylaxis: Coumadin 5. HTN: Lopressor/Lisinopril. BPs at times higher. Lisinopril 10mg QD and lopressor 50 BID 6. UTI with E.coli and Urinary incontinence: On cipro day 4/7. Pending culture sensitivities. timed voids. 7. Constipation: Daily suppositories 8. Advanced directives: full code 9. Bradycardia: lopressor down to 50 mg BID 12/10/17 16:18
[2017-12-10] MEDS: Atorvastatin* 80 MG TAB PO SCH (17:07)
[2017-12-10] MEDS: Warfarin TAB(*) 3 MG PO SCH (17:07)
[2017-12-10] MEDS: Senna TAB PO SCH (20:03)
[2017-12-11] MEDS: Polyethylene Glycol 3350* 17 GM PACKET PO SCH (07:57)
[2017-12-11] MEDS: Magnesium Oxide TAB* 400 MG PO SCH (07:57)
[2017-12-11] MEDS: Bisacodyl SUPP* 10 MG SUPP PR SCH (07:57)
[2017-12-11] MEDS: Lisinopril TAB* 10 MG PO SCH (07:57)
[2017-12-11] MEDS: FLUoxetine CAP* 20 MG PO SCH (07:57)
[2017-12-11] MEDS: Ciprofloxacin TAB* 500 MG PO SCH ×2 (07:58→19:48)
[2017-12-11] MEDS: Metoprolol Tartrate TAB* 50 mg PO SCH ×2 (07:58→19:50)
[2017-12-11] MEDS: Potassium Chlor TAB* 20 MEQ TAB.ER PO SCH (07:58)
[2017-12-11] MEDS: Docusate CAP* 100 MG PO SCH ×2 (07:58→19:46)
--- NOTE | 2017-12-11 12:54 | PMRUTEAM ---
PMRU: Team Meeting Current Status: Nursing: Current Status Skin Deviations [no skin Other issues noted] Skin Deviations [Buttocks] Other Skin Deviations [Bilateral Other Foot] Skin Deviation Description [no none skin issues noted] Skin Deviation Description [ healed redness Buttocks] Skin Deviation Description [ dry skin Bilateral Foot] Bladder Current Status incontinent at times, voiding at times Bowel Current Status Incontinent at times, last BM was 12/02/2017 Nutrition Current Status Adequete Medication Current Status Needs reinforcement Physical Therapy: Current Status Bed Mobility Assistance Supervision Transfer Moblility Assistance Supervision Transfer/Bed Mobility None,Rolling Walker Recommended Devices Transfer Mobility Comment Pt. now uses 2 w/w for transfers and amb. Ambulation Assistance Supervision,Contact Guard Assist Ambulation Assistive Devices None,Rolling Walker Number of Feet Patient 300, 150 Ambulated Ambulation Comment Pt. presents an improved reciprocal type gait pattern. Stairs Assistance Contact Guard Assist Stairs Recommended Devices Two Rails Number of Stairs 2 bouts [id number] steps Curb Not Tested Objective Comments mod cues for use of RUE and max cues for safety / sequencing; frequent rest breaks required due to reported fatigue Occupational Therapy: Current Status Upper Body Dressing Min Assist Upper Body Dressing Progress assist to clasp bra Lower Body Dressing Min Assist Lower Body Dressing Progress v/c's, assist to button pants, assist at times assist to hike right side Bathing Supervision,Contact Guard Assist Bathing Progress balance in standing Toileting Supervision,Min Assist Toileting Progress assist for clothing management, rear bladimir hygiene Toilet Transfer Supervision Toilet Transfer Progress v/c's for safety and hand placement Shower Transfer Supervision Shower Transfer Progress roll in shower chair, able to maintenance of way clerk shower with Radha 12/03/17 Eating Supervision Eating Progress setupA Rec Therapy: Current Status Summary of Assessment and RT assessment updated with information provided by Clinical Impression pt.'s significant other. Regular leisure sessions are offered. Pt. has leisure material in her room. Treatment Goals Patient will engage in recreation and leisure activities while on the unit. Treatment Plan Provide and encourage involvement in RT services. Social Work: Current Status Discharge Plan return home with home care svs and family support Potential for Family Training pt's partner is supportive and involved Anticipated Discharge Home Destination Discharge With home care svs and family support Nutrition: Current Status Monitoring Visited pt on unit, but family not present, so did not provide food/drug instruction. Intake has improved to 75-100% of meals since 12/08. Making good progress. Regular bowel pattern with BMs 5/4, 5/5, 5/6. No new labs to report. Will continue to follow and provide food/drug interaction instruction when family available. Speech: Current Status Assessment Patiern is progressing slowly as expected. Speech Current Status Goal 1 3 Speech Goal 2 Current Status 3 Speech Goal 3 Current Status 3 Speech Goal 4 Current Status 7 Goals: Physical Therapy: Initial Goals Bed Mobility Assistance Independent Transfer Mobility Assistance Independent Transfer/Bed Mobility Rolling Walker Recommended Devices Ambulation Independent Ambulation Recommended Devices Rolling Walker Ambulation Distance 150 Stairs Assistance Independent Stair Recommended Devices Two Rails Number of Stairs 5 Physical Therapy: Updated Goals Bed Mobility Assistance Independent Transfer Mobility Assistance Independent Transfer/Bed Mobility Rolling Walker Recommended Devices Ambulation Assistance Independent Ambulation Assistive Devices Rolling Walker Ambulation Distance (ft) 150 Stairs Assistance Independent Stairs Recommended Devices Two Rails Number of Stairs 5 Occupational Therapy: Initial Goals Goals to be Completed in (Days 4 weeks ) Upper Body Bathing Routine Supervision/Set Up Lower Body Bathing Routine Supervision/Set Up Upper Body Dressing Routine Supervision/Set Up Lower Body Dressing Routine Supervision/Set Up Toilet Hygeine and Clothing Supervision/Set Up Management Routine Toilet Transfer Routine Supervision/Set Up Step-In Shower Transfer Supervision/Set Up Routine Tub Transfer Routine Supervision/Set Up Functional Transfers for ADL Modified Independent with Grooming Routine Independent Feeding Routine Independent Light Housekeeping Tasks Minimal Contact Assist,Moderate Assist Nursing: Goals Bladder Goal Voiding q2hr Bowel Goal No incontinence Nutrition Goal 100% of all meals Medication Goal will supervise medications Nutrition: Goals Intervention Goals 1. adequate po intake to maintain stable wt, hydration, and lean body mass 2. pt will tolerate least-restrictive diet texture without difficulty chewing or swallowing 3. maintain bowel regularity w/o constipation or diarrhea Speech: Goals Speech Goal 1 Comprehension Speech Evaluation Status Goal 2 1 Speech Current Status Goal 1 3 Goal 1 Comments Long-Term Goals: 1) Patient will follow 1-step verbal directions, with greater than 80% accuracy, I'ly. 2) Patient will identify spatial concepts, body parts, familiar objects and pictures, with greater than 80% accuracy, I'ly. 3) Patient will read numbers and functional words with greater than 80% accuracy, I'ly Short-Term Goals: 1) Patient will follow simple 1-step verbal directions, with 50% accuracy, given maximal verbal cueing, without visual cues. Status: Progressing as expected Patient followed first direction with 60% accuracy given moderate cueing, and following directions with less than 50% accuracy. 2) Patient will identify spatial concepts, body parts, familiar objects and pictures, with 50% accuracy, given maximum verbal cueing, without visual cues. Status: Progressing as expected. 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 To confirm choices, recommend brief distraction between repetition, to refresh functionality of questions. 3A) Patient will read numerals, letters, and common words with 80% accuracy, given moderate cueing. Status: Progressing as expected. Patient read 50% of common words accurately I'ly, and 70% given moderate cues. Speech Goal 2 Expression Speech Goal 2 Evaluation 3 Status Speech Goal 2 Current Status 3 Speech Goal 2 Comments Long-Term Goals: 1) Patient will verbally answer functional questions and express medical and social narratives with greater than 80% accuracy, I'ly. 2) Patient will name spatial concepts, body parts, familiar objects and pictures, with 80% accuracy, I'ly. 3) Patient will write numbers and functional words with greater than 80% accuracy, I'ly Short-Term Goals: 1) Patient will name spatial concepts, body parts, familiar objects and pictures, with 50% accuracy given maximal cueing. Status: Met. Modified Goal below. Patient named 5/11 pictures I'ly (45%), and named remainder given maximum cueing. 1A) Patient will name spatial concepts, body parts , familiar objects and pictures, with 60% accuracy I'ly, and 80% given moderate cueing. Status: Progressing as expected. Patient named 8/15 pictures I'ly (53%), and on review named 11/15 (73)% I'ly. 2) Patient will use conversational repair strategies to find words by asking for help, hinting, and repeating target words in meaningful sentences, with 50% accuracy given maximal cueing. Status: Progressing as expected. Patient attempted to say target words with partial words or substitutions, but often perseverated on previous targets. 3) Patient will write numerals, letters and her name with 60% accuracy, given maximal cueing. Status: Progressing as expected. Speech Goal 3 Problem Solving Speech Goal 3 Evaluation 2 Status Speech Goal 3 Current Status 3 Speech Goal 3 Comments Long-Term Goal: Patient will solve simple functional problems (sequencing, counting, safety) with 80% accuracy given minimal cueing. Short-Term Goal: Patient will solve simple functional problems with 50% accuracy given maximum cueing. Status: Progressing as expected. Patient required maximal cueing to sequence 2 pictures (dressing, driving). Patient continues with limited demonstration of awareness of safety precautions, and sequencing of common daily activities. Patient appeatred to understand injunctions as dirctions. Recommend present all safety precautions as postives. (Avoid "Don't get up alone," instead "Use call jin" and "Wait for help.") Patient initiated getting get out of bed for lunch by herself, and required maximum cueing to call for help. Speech Goal 4 Swallowing Speech Goal 4 Evaluation 7 Status Speech Goal 4 Current Status 7 Speech Goal 4 Discharge Status 7 Speech Goal 4 Comments Goal: Patient will tolerate regular diet consistencies w/ adequate intake and no complications from aspiration, given setup as needed. Status: Met. Social Work: Goals Discharge Plan return home with home care svs and family support Potential for Family Training pt's partner is supportive and involved Anticipated Discharge Home Destination Discharge With home care svs and family support Care Plan: Care Plan ADL's - Improve/Maintain Start: 11/22/17 16:31 Freq: DAILY Status: Active Target: Protocol: Activity Type Activity Date Activity User E-Sign Co-Sign Detail Recorded Client Recorded Date Recorded By Document 12/10/17 15:50 [id number] 12/10/17 15:50 [id number] 12/10/17 15:50 PMRU Outcome: ADL's/ADL Transfers Orders/Interventions Occupational Therapy Evaluation & Treatment Communication Tool in Patient Room Device Yes Address Deficits Secondary To: CVA s/p embolectomy Patient to receive OT 5x/wk for 60-120 Therex min/day Self Care Management Group Therapy Neuromuscular ReEducation UE/LE ADL's with Assist Yes: supervision ADL Transfers with Assist Yes: supervision Toileting: Transfers,Clothing Management Yes: ,Hygeine w/Assist supervision Light Kitchen/Laundry w/Assist Yes: min-modA Progression Toward Outcome/Goals Progressing Outcome/Goals Met Pt continues with slow progress toward goals, further progress with UE/LE dressing at this point will likely take significant time due to slow return of strength and functional use of RUE. Pt will likely require supervision and v/c's for mobility and ADLs at d/c. Communication-Improve/Maintain Start: 11/21/17 15:20 Freq: DAILY Status: Active Target: Protocol: Activity Type Activity Date Activity User E-Sign Co-Sign Detail Recorded Client Recorded Date Recorded By Document 12/11/17 12:20 [id number] 12/11/17 12:20 [id number] 12/11/17 12:20 PMRU Outcome: Communication/Cognitive Status Outcome/Goals Use Comm Tools/ Devices Makes Needs Known Effectively Other Outcomes/Goals Long-Term Goals : 1) Patient will verbally answer functional questions and express medical and social narratives with greater than 80% accuracy, I 'ly. 2) Patient will name spatial concepts, body parts, familiar objects and pictures, with 80% accuracy, I 'ly. 3) Patient will write numbers and functional words with greater than 80 % accuracy, I' ly Short-Term Goals: 1) Patient will name spatial concepts, body parts, familiar objects and pictures, with 50% accuracy given maximal cueing. Status: Met. Modified Goal below. Patient named 5 /11 pictures I' ly (45%), and named remainder given maximum cueing. 1A) Patient will name spatial concepts, body parts, familiar objects and pictures, with 60% accuracy I' ly, and 80% given moderate cueing. 2) Patient will use conversational repair strategies to find words by asking for help , hinting, and repeating target words in meaningful sentences, with 50% accuracy given maximal cueing. Status: Progressing as expected. Patient attempted to say target words with partial words or substitutions, but often perseverated on previous targets. 3) Patient will write numerals , letters and her name with 60% accuracy, given maximal cueing. Status: Progressing as expected. PROBLEM SOLVING Long-Term Goal: Patient will solve simple functional problems ( sequencing, counting, safety) with 80 % accuracy given minimal cueing. Short-Term Goal : Patient will solve simple functional problems with 50% accuracy given maximum cueing. Status: Progressing as expected. Patient required maximal cueing to sequence 2 pictures ( dressing, driving). Patient continues with limited demonstration of awareness of safety precautions, and sequencing of common daily activities. Patient appeatred to understand injunctions as dirctions. Recommend present all safety precautions as postives. ( Avoid "Don't get up alone," instead "Use call jin" and "Wait for help. ") Patient initiated getting get out of bed for lunch by herself, and required maximum cueing to call for help. Progression Toward Outcomes/Goals Goals Adjusted Outcome/Goals Met Use Comm Tools/ Devices Outcome/Goals Met Comment 1) Patient will name spatial concepts, body parts, familiar objects and pictures, with 50% accuracy given maximal cueing. Status: Met. Modified Goal below. Patient named 5 /11 pictures I' ly (45%), and named remainder given maximum cueing. 1A) Patient will name spatial concepts, body parts, familiar objects and pictures, with 60% accuracy I' ly, and 80% given moderate cueing. Coping/Psych-Improve/Maintain Start: 11/21/17 15:20 Freq: DAILY Status: Active Target: Protocol: Activity Type Activity Date Activity User E-Sign Co-Sign Detail Recorded Client Recorded Date Recorded By Document 12/11/17 00:45 [id number] 12/11/17 00:46 [id number] 12/11/17 00:45 PMRU Outcome: Coping/Psychosocial Coping Outcome/Goals Willingness to Participate in Treatment Plan and Basic Needs Utilization of Available Support Systems Psychosocial Outcome/Goals Cooperate/ Participate in Plan Progression Toward Outcome/Goals - Progressing Coping Progression Toward Outcome/Goals - Progressing Psychosocial DVT Prophylaxis- Improve/Maintain Start: 11/21/17 15:20 Freq: DAILY Status: Complete Target: Protocol: Activity Type Activity Date Activity User E-Sign Co-Sign Detail Recorded Client Recorded Date Recorded By Document 12/10/17 17:44 [id number] 12/10/17 17:45 [id number] 12/10/17 17:44 PMRU Outcome: DVT Prophylaxis Outcome/Goals Remains Free of DVT Complies with DVT Prophylaxis /Treatment TEDS Stockings on Every AM, Off at HS Outcome/Goals Met Remains Free of DVT Complies with DVT Prophylaxis /Treatment Discharge Planning - Improve/Maintain Start: 11/21/17 15:20 Freq: DAILY Status: Active Target: Protocol: Activity Type Activity Date Activity User E-Sign Co-Sign Detail Recorded Client Recorded Date Recorded By Document 12/11/17 00:45 [id number] 12/11/17 00:46 [id number] 12/11/17 00:45 PMRU Outcome: Discharge Planning Update Patient Family No Outcome/Goals Demonstrates Understanding of Discharge Plan Progression Toward Outcome/Goals Progressing Education-Improve/Maintain Start: 11/21/17 15:20 Freq: DAILY Status: Active Target: Protocol: Activity Type Activity Date Activity User E-Sign Co-Sign Detail Recorded Client Recorded Date Recorded By Document 12/11/17 00:45 [id number] 12/11/17 00:46 [id number] 12/11/17 00:45 PMRU Outcome: Education Outcome/Goals Encourage Questions Progression Toward Outcome/Goals Progressing /GI-Improve/Maintain Start: 11/21/17 15:20 Freq: DAILY Status: Active Target: Protocol: Activity Type Activity Date Activity User E-Sign Co-Sign Detail Recorded Client Recorded Date Recorded By Document 12/11/17 00:45 [id number] 12/11/17 00:46 [id number] 12/11/17 00:45 PMRU Outcome: Genitourinary/ Gastrointestinal Genitourinary- Outcome/Goals Maintain/ Achieve Adequate Urinary Output Gastrointestinal-Outcome/Goals Maintain/ Achieve Bowel Regularity in Accordance with Pt's Baseline Prevent Constipation Laxatives as Ordered Bowel Program Progression Toward Outcome/Goals - Progressing Progression Toward Outcome/Goals - GI Progressing Medication Administration Start: 11/21/17 15:20 Freq: DAILY Status: Active Target: Protocol: Activity Type Activity Date Activity User E-Sign Co-Sign Detail Recorded Client Recorded Date Recorded By Document 12/11/17 00:45 [id number] 12/11/17 00:46 [id number] 12/11/17 00:45 PMRU Outcome: Medication Administration Assess Patient Knowledge/Teach Med Yes Education for all Meds Outcome/Goals Family/ Caregiver Administer Medications at Home Progression Towards Outcome/Goals Progressing Is Patient Going Home on Lovenox? No Mobility- Improve/Maintain Start: 12/07/17 17:58 Freq: DAILY Status: Active Target: Protocol: Activity Type Activity Date Activity User E-Sign Co-Sign Detail Recorded Client Recorded Date Recorded By Document 12/07/17 18:00 [id number] 12/07/17 18:00 [id number] 12/07/17 18:00 PMRU Outcome: Mobility Physical Therapy Evaluation and Yes Treatment Activity OOB with Assistance Yes WBAT Yes Device Yes Assistance Yes Patient to be seen 5x/wk for 60-120 min/ Therex day for: Mobility Training Gait Training Balance Outcome/Goals Maintain/ Achieve Baseline Mobility Status Improve Mobility Status Demonstrates Proper Use of Assistive Devices Free from Complications of Immobility Progression Toward Outcome/Goals Progressing Bed Mobility Yes: independent Transfers Yes: independent with rolling walker. Gait x ft Yes: independent with rolling walker to 150' Up/Down Stairs Yes: independent up/ down 5 stairs. Neurological- Improve/Maintain Start: 11/21/17 15:20 Freq: DAILY Status: Active Target: Protocol: Activity Type Activity Date Activity User E-Sign Co-Sign Detail Recorded Client Recorded Date Recorded By Document 12/11/17 00:45 [id number] 12/11/17 00:46 [id number] 12/11/17 00:45 PMRU Outcome: Neurological Weakness/Aphasia Weakness Aphasia Right Side Outcome/Goals Improve Neurological Status Prevent Avoidable Neurological Decline Maintain/ Improve Strength/ROM Progression Toward Outcome/Goals Progressing Safety- Improve/Maintain Start: 11/21/17 15:20 Freq: DAILY Status: Active Target: Protocol: Activity Type Activity Date Activity User E-Sign Co-Sign Detail Recorded Client Recorded Date Recorded By Document 12/11/17 00:45 [id number] 12/11/17 00:46 [id number] 12/11/17 00:45 PMRU Outcome: Safety Outcome/Goals Remain Free of Injury or Harm Progression Toward Outcome/Goals Progressing Outcome/Goals Met Comment x2 PA, one tamper-free. Medicine Note: Length of Stay: 2 days Anticipated Discharge Destination: Home Tentative Discharge Date: 12/13/17 Discharged to: home
--- NOTE | 2017-12-11 16:13 | PN ---
Progress Note Date of Service: 12/11/17 Note: TEJAS TAVARES was visited. Therapy notes read and reviewed. She was discussed in interdisicplinary team rounds. She has made improvements in naming , but has apraxia when trying to incorporate details and follow directions Current Medications: Active Medications Generic Name Dose Route Start Last Admin Trade Name Freq PRN Reason Stop Dose Admin Acetaminophen 650 mg 11/21/17 12:38 Tylenol Tab* PO Q6H PRN FEVER/PAIN Al Hydrox/Mg Hydrox/Simethicone 30 ml 11/28/17 10:12 Maalox Plus* PO Q6H PRN DYSPEPSIA Atorvastatin Calcium 80 mg 11/22/17 17:00 12/10/17 17:07 Lipitor* PO 80 mg 1700 CHAD Administration Bisacodyl 10 mg 12/05/17 09:00 12/11/17 07:57 Dulcolax Supp* NM 10 mg DAILY CHAD Administration Ciprofloxacin 500 mg 12/07/17 21:00 12/11/17 07:58 Cipro Tab* PO 500 mg BID CHAD Administration Docusate Sodium 100 mg 11/21/17 21:00 12/11/17 07:58 Colace Cap* PO 100 mg BID CHAD Administration Fluoxetine HCl 20 mg 12/02/17 08:00 12/11/17 07:57 Prozac Cap* PO 20 mg DAILY CHAD Administration Hydralazine HCl 5 mg 11/24/17 17:06 Apresoline Tab* PO Q6H PRN SBP > 180 Lisinopril 10 mg 12/04/17 08:00 12/11/17 07:57 Prinivil Tab* PO 10 mg Q24H CHAD Administration Magnesium Hydroxide 30 ml 11/21/17 12:38 11/28/17 12:38 Milk Of Magnesia Liq* PO 30 ml Q6H PRN Administration CONSTIPATION Magnesium Oxide 400 mg 11/22/17 09:00 12/11/17 07:57 Magox 400 Tab* PO 400 mg DAILY CHAD Administration Metoprolol Tartrate 50 mg 12/01/17 21:00 12/11/17 07:58 Lopressor Tab* PO 50 mg Q12HR CHAD Administration Pharmacy Profile Note 1 note 11/27/17 17:00 12/10/17 17:08 Coumadin Daily Reminder* FOLLOW UP 1 note 1700 CHAD Administration Polyethylene Glycol/Electrolytes 17 gm 11/29/17 09:00 12/11/17 07:57 Miralax* PO 17 gm DAILY CHAD Administration Potassium Chloride 20 meq 11/22/17 09:00 12/11/17 07:58 Klor Con Er Tab* PO 20 meq DAILY CHAD Administration Senna 2 tab 11/24/17 21:00 12/10/17 20:03 Senokot Tab* PO 2 tab BEDTIME CHAD Administration Sodium Biphosphate/Sodium Phosphate 1 bottle 11/28/17 18:07 11/28/17 21:30 Fleet Enema* NM 1 bottle DAILY PRN Administration CONSTIPATION Warfarin Sodium 3 mg 12/09/17 17:00 12/10/17 17:07 Coumadin Tab(*) PO 3 mg DAILY@1700 CHAD Administration Protocol Vital Signs: Vital Signs Temp Pulse Resp BP Pulse Ox 97.7 F 48 16 132/69 96 12/11/17 15:38 12/11/17 15:38 12/11/17 15:38 12/11/17 15:36 12/11/17 15:38 Exam: LUNGS: Clear to auscultation bilaterally HEART: regular rate and rhythm ABD: + bowel sounds, soft, non-distended. No peritoneal signs or signs of discomfort with palpation. EXT: Slightly increased tone, RUE NEURO: Aphasia. Right handgrip and shoulder flexion 4/5. Right ankle DF 5, hip flexion 4+/5 Assessment/Plan: 1. 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 PT/OT/[employer]. Regular consistency diet/thin liquids. Prozac, 20 mg 2. Proxysmal Atrial fibrillation. Continue Coumadin, and Lopressor with parameters. INR in am 3. Secondary Stroke Prevention: Lipitor/Coumadin 4. DVT Prophylaxis: Coumadin 5. HTN: Lopressor/Lisinopril. BPs at times higher. Lisinopril 10mg QD and lopressor 50 BID 6. UTI with E.coli and Urinary incontinence: On cipro day 5/7. timed voids. 7. Constipation: Daily suppositories 8. Advanced directives: full code 9. Bradycardia: lopressor down to 50 mg BID 12/11/17 16:15
[2017-12-11] MEDS: Atorvastatin* 80 MG TAB PO SCH (17:06)
[2017-12-11] MEDS: Warfarin TAB(*) 3 MG PO SCH (17:06)
[2017-12-11] MEDS: Senna TAB PO SCH (19:48)
[2017-12-12 06:51] LABS: INR 2.17 (0.77-1.02)
[2017-12-12] MEDS: Polyethylene Glycol 3350* 17 GM PACKET PO SCH (07:42)
[2017-12-12] MEDS: Docusate CAP* 100 MG PO SCH ×2 (07:43→20:28)
[2017-12-12] MEDS: Magnesium Oxide TAB* 400 MG PO SCH (07:43)
[2017-12-12] MEDS: FLUoxetine CAP* 20 MG PO SCH (07:43)
[2017-12-12] MEDS: Metoprolol Tartrate TAB* 50 mg PO SCH ×2 (07:43→20:26)
[2017-12-12] MEDS: Lisinopril TAB* 10 MG PO SCH (07:43)
[2017-12-12] MEDS: Ciprofloxacin TAB* 500 MG PO SCH ×2 (07:43→20:26)
[2017-12-12] MEDS: Potassium Chlor TAB* 20 MEQ TAB.ER PO SCH (07:44)
[2017-12-12] MEDS: Bisacodyl SUPP* 10 MG SUPP PR SCH (09:00)
[2017-12-12] MEDS: Atorvastatin* 80 MG TAB PO SCH (16:54)
[2017-12-12] MEDS: Warfarin TAB(*) 3 MG PO SCH (16:54)
--- NOTE | 2017-12-12 17:48 | PN ---
Progress Note Date of Service: 12/12/17 Note: TEJAS TAVARES was visited. Therapy notes read and reviewed. Family training went well today. She is set for discharge in am. Aphasia is going to be her challenge as she moves pretty well. Current Medications: Active Medications Generic Name Dose Route Start Last Admin Trade Name Freq PRN Reason Stop Dose Admin Acetaminophen 650 mg 11/21/17 12:38 Tylenol Tab* PO Q6H PRN FEVER/PAIN Al Hydrox/Mg Hydrox/Simethicone 30 ml 11/28/17 10:12 Maalox Plus* PO Q6H PRN DYSPEPSIA Atorvastatin Calcium 80 mg 11/22/17 17:00 12/12/17 16:54 Lipitor* PO 80 mg 1700 [facility]AD Administration Bisacodyl 10 mg 12/05/17 09:00 12/12/17 09:00 Dulcolax Supp* LA Not Given DAILY CHAD Ciprofloxacin 500 mg 12/07/17 21:00 12/12/17 07:43 Cipro Tab* PO 500 mg BID CHAD Administration Docusate Sodium 100 mg 11/21/17 21:00 12/12/17 07:43 Colace Cap* PO 100 mg BID CHAD Administration Fluoxetine HCl 20 mg 12/02/17 08:00 12/12/17 07:43 Prozac Cap* PO 20 mg DAILY CHAD Administration Hydralazine HCl 5 mg 11/24/17 17:06 Apresoline Tab* PO Q6H PRN SBP > 180 Lisinopril 10 mg 12/04/17 08:00 12/12/17 07:43 Prinivil Tab* PO 10 mg Q24H CHAD Administration Magnesium Hydroxide 30 ml 11/21/17 12:38 11/28/17 12:38 Milk Of Magnesia Liq* PO 30 ml Q6H PRN Administration CONSTIPATION Magnesium Oxide 400 mg 11/22/17 09:00 12/12/17 07:43 Magox 400 Tab* PO 400 mg DAILY CHAD Administration Metoprolol Tartrate 50 mg 12/01/17 21:00 12/12/17 07:43 Lopressor Tab* PO 50 mg Q12HR CHAD Administration Pharmacy Profile Note 1 note 11/27/17 17:00 12/12/17 16:54 Coumadin Daily Reminder* FOLLOW UP 1 note 1700 CHAD Administration Polyethylene Glycol/Electrolytes 17 gm 11/29/17 09:00 12/12/17 07:42 Miralax* PO 17 gm DAILY CHAD Administration Potassium Chloride 20 meq 11/22/17 09:00 12/12/17 07:44 Klor Con Er Tab* PO 20 meq DAILY CHAD Administration Senna 2 tab 11/24/17 21:00 12/11/17 19:48 Senokot Tab* PO 2 tab BEDTIME CHAD Administration Sodium Biphosphate/Sodium Phosphate 1 bottle 11/28/17 18:07 11/28/17 21:30 Fleet Enema* LA 1 bottle DAILY PRN Administration CONSTIPATION Warfarin Sodium 4 mg 12/12/17 17:40 Coumadin Tab(*) PO DAILY@1700 [facility] Protocol Vital Signs: Vital Signs Temp Pulse Resp BP Pulse Ox 97.7 F 55 20 154/82 98 12/12/17 15:48 12/12/17 15:48 12/12/17 15:48 12/12/17 15:48 12/12/17 17:02 Lab Results: Laboratory Results - last 24 hr 12/12/17 06:35 INR (Anticoag Therapy) 2.17 H Exam: LUNGS: Clear to auscultation bilaterally HEART: regular rate and rhythm ABD: + bowel sounds, soft, non-distended. No peritoneal signs or signs of discomfort with palpation. EXT: Slightly increased tone, RUE NEURO: Aphasia. Right handgrip and shoulder flexion 4/5. Right ankle DF 5, hip flexion 4+/5 Assessment/Plan: 1. 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 PT/OT/FLAGGER. Regular consistency diet/thin liquids. Prozac, 20 mg 2. Proxysmal Atrial fibrillation. Continue Coumadin, and Lopressor with parameters. INR in am 3. Secondary Stroke Prevention: Lipitor/Coumadin 4. DVT Prophylaxis: Coumadin 5. HTN: Lopressor/Lisinopril. BPs at times higher. Lisinopril 10mg QD and lopressor 50 BID 6. UTI with E.coli and Urinary incontinence: On cipro day 5/7. timed voids. 7. Constipation: Daily suppositories 8. Advanced directives: full code 9. Bradycardia: lopressor down to 50 mg BID 10. Disposition: Home in am 12/12/17 17:49
[2017-12-12] MEDS ORDERED: Warfarin TAB(*) 1 MG PO ONE (18:15)
[2017-12-12] MEDS: Senna TAB PO SCH (20:26)
[2017-12-13 05:56] VITALS: BP 154/60
[2017-12-13 06:48] LABS: INR 2.36 (0.77-1.02)
[2017-12-13] MEDS: Magnesium Oxide TAB* 400 MG PO SCH (08:38)
[2017-12-13] MEDS: Lisinopril TAB* 10 MG PO SCH (08:38)
[2017-12-13] MEDS: Ciprofloxacin TAB* 500 MG PO SCH (08:38)
[2017-12-13] MEDS: Metoprolol Tartrate TAB* 50 mg PO SCH (08:39)
[2017-12-13] MEDS: Potassium Chlor TAB* 20 MEQ TAB.ER PO SCH (08:39)
[2017-12-13] MEDS: FLUoxetine CAP* 20 MG PO SCH (08:39)
[2017-12-13] MEDS: Docusate CAP* 100 MG PO SCH (08:39)
[2017-12-13] MEDS: Polyethylene Glycol 3350* 17 GM PACKET PO SCH (08:40)
[2017-12-13] MEDS: Bisacodyl SUPP* 10 MG SUPP PR SCH (08:44)
[2017-12-13] MEDS ORDERED: Warfarin TAB(*) 4 MG PO SCH (17:00)
--- NOTE | 2017-12-15 08:55 | DS ---
CC: Raven Cardona MD; Pravin Ridley MD * DISCHARGE SUMMARY: DATE OF ADMISSION: 11/21/17 DATE OF DISCHARGE: 12/13/17 DISCHARGE DIAGNOSES: 1. Left-sided cerebrovascular accident with right hemiparesis and aphasia. 2. Atrial fibrillation. 3. Hypertension. 4. Status post embolectomy. HISTORY OF PRESENT ILLNESS AND HOSPITAL COURSE: For complete history of the events leading up to her rehab stay, please see the history and physical dictated by me on 11/21/17. While on the rehab unit, the patient's atrial fibrillation was controlled with beta-blockers. However, she began to have episodes of bradycardia. Her Lopressor dose was cut from 100 mg twice a day to 50 mg twice a day. The patient was maintained on Coumadin for her atrial fibrillation. The patient was otherwise fairly stable. The patient was seen by physical therapy, occupational therapy, and speech therapy. She was also put on Prozac in an attempt to enhance neuronal recovery from her stroke. The patient made good gains with all disciplines. With physical therapy at the time of admission, the patient required moderate amount of assistance to do a transfer, moderate amount of assistance to ambulate 40 feet. With occupational therapy at the time of admission, the patient required moderate amount of assistance for upper body dressing, min assist for lower body dressing, total assistance for toileting, min assist for toilet transfer. By the time of discharge, the patient was supervision in toileting, supervision with upper body dressing, supervision with lower body dressing, supervision in transfers, and supervision ambulating 150 feet. The patient also worked with speech therapy extensively because of her aphasia. She made good gains with speech therapy, although remained aphasic at the time of discharge. At the time of admission, the patient was noted to have about 40% auditory comprehension. Repetition of single words and short phrases was good, but the patient did not initiate automatic sequences. Her yes/no's were estimated at about 50%. 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 She had severe impairment of her executive functioning. Her speech was intelligible. By the time of discharge, her naming had improved. The patient continued to demonstrate a moderate impairment in receptive language and memory and moderate to severe impairment in expressive language and problem solving. Her yes/no's had improved, but still were not 100 % accurate. The patient was tolerating regular diet consistencies. The patient 's significant other called, came in for extensive family training. The patient was discharged home with [facility] 12/13/17. DISCHARGE DIET: Heart-healthy, gluten-free. DISCHARGE MEDICATIONS: Included: 1. Lipitor 80 mg daily. 2. Prozac 20 mg daily. 3. Lisinopril 10 mg daily. 4. Lopressor 50 mg every 12 hours. 5. Coumadin 4 mg daily. 6. Potassium chloride 20 mEq daily. SERVICES AFTER DISCHARGE: Through visiting nurse service. She will have home nursing, home physical therapy, home occupational therapy, and home speech therapy. FOLLOWUP: She will follow up with her primary care, Dr. Raven Cardona as well as the neurologist, Dr. Pravin Ridley. [id number]/[id number] #: [id number]
== END 2017-12-13 11:45 | disposition home health service (06) | DRG 57 ==
LOC: PMRU 12:29
PROVIDERS: ADMIT Physical Medicine & Rehabilitation; ATTEND Physical Medicine & Rehabilitation
PROC: F07Z5ZZ Bed Mobility Treatment (ICD-10-PCS; principal; 2017-11-21)
PROC: F07Z8ZZ Transfer Training Treatment (ICD-10-PCS; 2017-11-21)
PROC: F07Z9ZZ Gait Training/Functional Ambulation Treatment (ICD-10-PCS; 2017-11-21)
PROC: F08Z0ZZ Bathing/Showering Techniques Treatment (ICD-10-PCS; 2017-11-21)
PROC: F08Z1ZZ Dressing Techniques Treatment (ICD-10-PCS; 2017-11-21)
PROC: F08Z3ZZ Feeding/Eating Treatment (ICD-10-PCS; 2017-11-21)
PROC: F06Z3ZZ Aphasia Treatment (ICD-10-PCS; 2017-11-21)
DX: I69.351 Hemiplegia and hemiparesis following cerebral infarction affecting right dominant side (principal); N39.0 Urinary tract infection, site not specified; I69.320 Aphasia following cerebral infarction; I48.0 Paroxysmal atrial fibrillation; I10 Essential (primary) hypertension; B96.20 Unspecified Escherichia coli [E. coli] as the cause of diseases classified elsewhere; R32 Unspecified urinary incontinence; K59.00 Constipation, unspecified; Z79.899 Other long term (current) drug therapy; Z79.01 Long term (current) use of anticoagulants; Z88.0 Allergy status to penicillin; Z88.2 Allergy status to sulfonamides
CPT/HCPCS: 36415; 74019; 80048; 80053; 81003; 81015; 83735; 84484; 85025; 85610; 87077; 87086; 87186; A9270-GY; G0515-GO

== ENCOUNTER → 2019-01-14 09:36 | Day surgery (SDC) | payer MEDICARE, OTHER ==
[~2019-01-14 09:36] MED LIST: Acetaminophen TAB* 325 MG PO PRN; Buffered Lidocaine 1% SYRIN* 1 ML/SYRINGE INTRADERM ONE; Cyclopentolate 1% OPTH.SOL* 2 ML BTL ONE; Ketorolac 0.5% OPHTH (NF) 0.5 % 5 ML BTL ONE; Labetalol IV* 5 MG/ML 20 ML VIAL ONE; Lidocaine 1%* 5 ML VIAL ONE; Midazolam* 1 MG/ML 2 ML VIAL (2 MG) ONE; Neomycin/Polymy/Dex OPHTH.OIN* 3.5 GM ONE; Phenylephrine OPHTH SOL 2.5%* 2 ML ONE; Tetracaine 0.5% OPTH.SOL 4 ML* 1 DROP BTL ONE; Tropicamide 1% OPTH.SOL* BTL ONE; fentaNYL* 50 MCG/ML 2 ML VIAL (100 MCG VIAL) ONE
[2019-01-14 12:49] VITALS: BP 166/70
--- NOTE | 2019-01-14 15:02 | OP ---
DATE OF OPERATION: 01/14/19 [facility] DATE OF : 39 SURGEON: Dr. Hector Enciso. FLAME BRAZING MACHINE OPERATOR: None. ANESTHESIA: Topical with intravenous sedation. PRE-OP DIAGNOSIS: Cataract, left eye. POST-OP DIAGNOSIS: Cataract, left eye. OPERATIVE PROCEDURE: Phacoemulsification and cataract extraction with posterior chamber intraocular lens implant, left eye. COMPLICATIONS: None. BLOOD LOSS: None. DESCRIPTION OF PROCEDURE: The patient was brought to the operating room and received a small amount of intravenous sedation. A drop of Tetracaine was placed in her left eye. She was prepped and draped in the usual sterile fashion for ophthalmic surgery and attention was directed to the left eye where a speculum was placed. A paracentesis was created at the 5 o'clock position and 0.1 cc of 1 percent preservative-free Lidocaine was injected into the anterior chamber followed by DisCoVisc. The eye was digitally stabilized while a 2.75 mm keratome was used to create a triplanar clear corneal incision at the 3 o'clock position. A continuous curvilinear capsulorrhexis was created with a cystotome and Utrata forceps. BSS on a cannula was used to hydrodissect the lens from the capsule. Phacoemulsification was performed in a divide-and- conquer technique to create four fragments which were removed. Residual cortical material was removed with irrigation and aspiration. DisCoVisc was used to inflate the capsular bag and an [id number] 23.5 diopter lens was folded and inserted into the capsular bag. DisCoVisc was removed using irrigation and aspiration. BSS on a cannula was used to hydrate the corneal stroma and seal the wound. At the end of the case the pupil was round and the lens was centered. The eye was of normal pressure and the wound was water tight. The speculum was removed and topical Maxitrol ointment was placed on the surface of the eye. The eye was closed, patched and shielded and the patient was sent to the recovery room in stable condition with post operative instructions and follow-up appointment given. [id number]/[facility] #: [id number]
== END | disposition home or self-care (01) ==
LOC: OREAST 09:36
PROVIDERS: ATTEND Ophthalmology
DX: H25.12 Age-related nuclear cataract, left eye (principal); I10 Essential (primary) hypertension; Z86.73 Personal history of transient ischemic attack (TIA), and cerebral infarction without residual deficits; Z79.01 Long term (current) use of anticoagulants
CPT/HCPCS: A9270-GY; J2250; J3010; V2632